=== PATIENT | female | born 1950 | race Caucasian/White ===

== ENCOUNTER 2018-09-06 14:58 | Inpatient (IN) | payer MEDICARE, MEDICAID ==
[~2018-09-06] VITALS: Ht 165.1 cm; Wt 90.9 kg
[2018-09-06] MEDS ORDERED: HYDROcodone/acetaminophen 5mg/325mg tablet PO ONE (19:15)
[2018-09-06 19:24] LABS: BASOPHILS % (AUTO) 0.3 % (0-1); EOSINOPHILS % (AUTO) 0.3 % (0-6); HEMATOCRIT 34.7 % (35.0-45.0); HEMOGLOBIN 11.2 g/dl (12.0-16.0); LYMPHOCYTES # (AUTO) 0.7 X10'3 (1.1-4.8); LYMPHOCYTES % (AUTO) 5.6 % (21-51); MEAN CORPUSCULAR HEMOGLOBIN 28.7 PG (27.0-31.0); MEAN CORPUSCULAR HGB CONC 32.4 g/dL (33.0-36.5); MEAN CORPUSCULAR VOLUME 88.6 FL (78-98); MEAN PLATELET VOLUME 7.7 FL (7.4-10.4); MONOCYTES # (AUTO) 0.8 X10'3 (0-0.9); MONOCYTES % (AUTO) 6.5 % (2-12); NEUTROPHILS # (AUTO) 11.4 X10'3 (1.8-7.7); NEUTROPHILS % (AUTO) 87.3 % (42-75); PLATELET COUNT 578 X10'3 (140-440); RED BLOOD COUNT 3.92 X10'6 (4.20-5.60); RED CELL DISTRIBUTION WIDTH 14.8 % (11.5-14.5); WHITE BLOOD COUNT 13.1 X10'3 (4.5-11.0)
[2018-09-06 19:44] LABS: ALBUMIN 2.7 G/DL (3.4-5.0); ANION GAP 11 (8-16); BLOOD UREA NITROGEN 21 MG/DL (7-18); BUN/CREATININE RATIO 21.2 (6.6-38.0); CALCIUM 9.4 MG/DL (8.5-10.1); CHLORIDE 94 MMOL/L (99-107); CREATININE 0.99 MG/DL (0.40-0.90); GLUCOSE 86 MG/DL (70-104); POTASSIUM 4.2 MMOL/L (3.5-5.1); SODIUM 129 MMOL/L (135-145); TOTAL CARBON DIOXIDE 24.2 MMOL/L (24-32); eGFR 56 ML/MIN
[2018-09-06] MEDS ORDERED: vancomycin/NS 1 GM ADD-VANTAGE 250 ML IV ONE (22:00)
[2018-09-06] MEDS ORDERED: CefTRIAXone 2gm/D5W 50ml 50 ML IV ONE (22:00)
[2018-09-06] MEDS ORDERED: magnesium Cl slow-release 64mg tablet PO PRN (22:15)
[2018-09-06] MEDS ORDERED: magnesium 4gm in 100ml NS 100 ML IV PRN (22:15)
[2018-09-06] MEDS ORDERED: magnesium hydroxide 30ml (MOM) UD suspension PO PRN (22:15)
[2018-09-06] MEDS ORDERED: potassium Cl 40MEQ/NS 500ml 500 ML IV PRN ×2 (22:15)
[2018-09-06] MEDS ORDERED: magnesium 2GM in 50ml NS 50 ML IV PRN (22:15)
[2018-09-06] MEDS ORDERED: acetaminophen 325mg tablet PO PRN (22:15)
[2018-09-06] MEDS ORDERED: normal saline 1000ml 1,000 ML IV ONE (22:15)
[2018-09-06] MEDS ORDERED: potassium Cl 20 mEq SR tablet PO PRN ×2 (22:15)
[2018-09-06] MEDS ORDERED: HYDROcodone/acetaminophen 5mg/325mg tablet PO PRN (22:15)
[2018-09-06] MEDS ORDERED: mag hydrox/Alum hydrox/simeth 30ml oral suspension PO PRN (22:15)
[2018-09-06] MEDS ORDERED: ondansetron/PF 4mg/2ml inj IV PRN (22:15)
[2018-09-06] MEDS ORDERED: HYDROmorphone 1 mg/ml syringe IV ONE (23:35)
--- NOTE | 2018-09-07 00:10 | NUR ---
PT SLEEPING, WILL NOT WAKE PT TO ADMIN DILAUDID.
--- NOTE | 2018-09-07 00:37 | NUR ---
pt placed on hospital bed for comfort
[2018-09-07] MEDS: K and/or MAG REPLACEMENT MC SCH (08:00)
[2018-09-07] MEDS: lactobacillus rhamnosus 10,000 MMU CELLS/CAPSULE PO SCH ×2 (08:39→20:00)
[2018-09-07] MEDS: enoxaparin 40mg/0.4ml syringe SQ SCH (08:40)
[2018-09-07] MEDS: morphine 4 MG/ML inj SYRINge IV PRN ×3 (08:41→20:14)
[2018-09-07 08:44] LABS: BASOPHILS % (AUTO) 0.3 % (0-1); EOSINOPHILS % (AUTO) 0.2 % (0-6); HEMATOCRIT 36.7 % (35.0-45.0); HEMOGLOBIN 11.7 g/dl (12.0-16.0); LYMPHOCYTES # (AUTO) 0.9 X10'3 (1.1-4.8); LYMPHOCYTES % (AUTO) 7.4 % (21-51); MEAN CORPUSCULAR HEMOGLOBIN 28.8 PG (27.0-31.0); MEAN CORPUSCULAR HGB CONC 31.8 g/dL (33.0-36.5); MEAN CORPUSCULAR VOLUME 90.3 FL (78-98); MEAN PLATELET VOLUME 7.5 FL (7.4-10.4); MONOCYTES # (AUTO) 0.9 X10'3 (0-0.9); MONOCYTES % (AUTO) 6.9 % (2-12); NEUTROPHILS # (AUTO) 10.6 X10'3 (1.8-7.7); NEUTROPHILS % (AUTO) 85.2 % (42-75); PLATELET COUNT 491 X10'3 (140-440); RED BLOOD COUNT 4.06 X10'6 (4.20-5.60); RED CELL DISTRIBUTION WIDTH 14.8 % (11.5-14.5); WHITE BLOOD COUNT 12.4 X10'3 (4.5-11.0)
[2018-09-07 09:31] LABS: ALBUMIN 2.6 G/DL (3.4-5.0); ANION GAP 16 (8-16); BLOOD UREA NITROGEN 19 MG/DL (7-18); BUN/CREATININE RATIO 21.6 (6.6-38.0); CALCIUM 9.5 MG/DL (8.5-10.1); CHLORIDE 96 MMOL/L (99-107); CREATININE 0.88 MG/DL (0.40-0.90); GLUCOSE 78 MG/DL (70-104); MAGNESIUM 2.3 MG/DL (1.5-2.4); POTASSIUM 4.5 MMOL/L (3.5-5.1); SODIUM 131 MMOL/L (135-145); TOTAL CARBON DIOXIDE 19.3 MMOL/L (24-32); eGFR 64 ML/MIN
[2018-09-07] MEDS: vancomycin inj 1,250 MG in normal saline 250ml IV soln 250 ML IV SCH (11:00)
[2018-09-07] MEDS ORDERED: vancomycin/NS 1 GM ADD-VANTAGE 250 ML IV SCH (11:00)
--- NOTE | 2018-09-07 11:40 | NUR ---
paged vascular if they will attempt another ultz to ble.awaiting call.
--- NOTE | 2018-09-07 12:20 | NUR ---
per heavy truck technician,they will not do a repeat ultz to MD donna aware.non admin dilaudid since order is to be given prior vascular study.
[2018-09-07] MEDS ORDERED: VALE500C PO (12:40)
[2018-09-07] MEDS ORDERED: ACET-2119 PO (12:40)
--- NOTE | 2018-09-07 13:37 | NUR ---
WOUND CULTURE DONE.
--- NOTE | 2018-09-07 14:02 | NUR ---
PICTURE TAKEN TO RIGHT LEG.
--- NOTE | 2018-09-07 16:34 | NUR ---
relieving RN for break, pt is sleeping quietly on bed, resp even and unlabored,
--- NOTE | 2018-09-07 17:19 | NUR ---
patient reports she has $450 almaguer,but patient refused for RN to see it-also refused to keep it to safe.Patient reports her son will take it home when he comes to see her.
--- NOTE | 2018-09-07 19:48 | NUR ---
PT REQUESTING PAIN MEDICATION, APPEARS IN NO ACUTE DISTRESS, GIVEN MEAL TRAY.
[2018-09-07] MEDS: CefTRIAXone 2gm/D5W 50ml 50 ML IV SCH (21:15)
--- NOTE | 2018-09-07 22:32 | NUR ---
PT APPEARS TO BE SLEEPING, RESP EVEN,UNLABORED.
[2018-09-08] MEDS: vancomycin inj 1,250 MG in normal saline 250ml IV soln 250 ML IV SCH ×3 (00:05→23:25)
[2018-09-08] MEDS: morphine 4 MG/ML inj SYRINge IV PRN ×4 (00:20→17:26)
--- NOTE | 2018-09-08 01:24 | NUR ---
PT SITTING ON EDGE OF BED, APPEARS IN NO ACUTE DISTRESS.
--- NOTE | 2018-09-08 01:45 | NUR ---
REPORT CALLED TO RIGOBERTO, PATIENT CONDITION REVIEWED, QUESTIONS ANSWERED.
--- NOTE | 2018-09-08 02:15 | NUR ---
Received report from Miguel BARROSO pt arrived via hospital bed, alert and oriented, on RA, belongings in the bed with the pt, will assess pt and orient her to room.
[2018-09-08 02:30] VITALS: BP 99/57
--- NOTE | 2018-09-08 03:15 | NUR ---
Assessed pts, pt has open wound to R. calf, told pt we could put xeroform on the wound and wrap it with kerlex to protect wound from sticking to the sheets and protect it in general, pt refused to let me wrap leg stating " I cant stand those dressings because then they get wet and I just have to change them, I have dressings at home."
--- NOTE | 2018-09-08 06:15 | NUR ---
Patient in room [facility]. I have received report from Rosalia BARROSO and had the opportunity to ask questions and assume patient care.
--- NOTE | 2018-09-08 06:32 | NUR ---
Gave report to Silke BARROSO pt is awake and alert sitting on the edge of the bed in no apparent distress, call light and items of freq use within reach.
[2018-09-08] MEDS: lactobacillus rhamnosus 10,000 MMU CELLS/CAPSULE PO SCH ×2 (07:30→20:27)
[2018-09-08] MEDS: enoxaparin 40mg/0.4ml syringe SQ SCH (07:31)
[2018-09-08] MEDS: K and/or MAG REPLACEMENT MC SCH (07:36)
[2018-09-08 07:45] VITALS: BP 115/81
--- NOTE | 2018-09-08 09:00 | NUR ---
Patient refusing to have right leg wounds to be covered with any bandages and also refusing to elevate feet in bed, informed . aware.
[2018-09-08] MEDS: HYDROcodone/acetaminophen 10/325mg tab PO PRN ×3 (09:30→21:16)
[2018-09-08 09:40] LABS: BASOPHILS # (AUTO) 0.1 X10'3 (0-0.2); BASOPHILS % (AUTO) 0.8 % (0-1); EOSINOPHILS # (AUTO) 0.1 X10'3 (0-0.9); EOSINOPHILS % (AUTO) 0.6 % (0-6); HEMATOCRIT 31.8 % (35.0-45.0); HEMOGLOBIN 10.4 g/dl (12.0-16.0); LYMPHOCYTES # (AUTO) 0.9 X10'3 (1.1-4.8); LYMPHOCYTES % (AUTO) 8.1 % (21-51); MEAN CORPUSCULAR HGB CONC 32.7 g/dL (33.0-36.5); MEAN CORPUSCULAR VOLUME 88.7 FL (78-98); MEAN PLATELET VOLUME 7.8 FL (7.4-10.4); MONOCYTES # (AUTO) 0.9 X10'3 (0-0.9); MONOCYTES % (AUTO) 8.7 % (2-12); NEUTROPHILS # (AUTO) 8.8 X10'3 (1.8-7.7); NEUTROPHILS % (AUTO) 81.8 % (42-75); PLATELET COUNT 497 X10'3 (140-440); RED BLOOD COUNT 3.58 X10'6 (4.20-5.60); RED CELL DISTRIBUTION WIDTH 15.1 % (11.5-14.5); WHITE BLOOD COUNT 10.8 X10'3 (4.5-11.0)
[2018-09-08 09:44] LABS: ALBUMIN 2.4 G/DL (3.4-5.0); ANION GAP 10 (8-16); BLOOD UREA NITROGEN 17 MG/DL (7-18); BUN/CREATININE RATIO 20.5 (6.6-38.0); CHLORIDE 98 MMOL/L (99-107); CREATININE 0.83 MG/DL (0.40-0.90); GLUCOSE 110 MG/DL (70-104); POTASSIUM 4.2 MMOL/L (3.5-5.1); SODIUM 133 MMOL/L (135-145); eGFR 69 ML/MIN
[2018-09-08 11:53] VITALS: BP 107/74
--- NOTE | 2018-09-08 13:00 | NUR ---
paged regarding pt stating, "I want to kill myself if this doesnt get any better. I cant handle the pain and not being able to care for myself." Asked patient if she has a plan, pt responded with, "I dont have a plan, my plan is to get better. But if this doesnt get any better then I want to kill myself. I dont want to kill myself right now." paged regarding pt statements.
--- NOTE | 2018-09-08 13:47 | NUR ---
Patient sleeping, does not appear to be in any pain at this time. Will continue to monitor.
--- NOTE | 2018-09-08 18:20 | NUR ---
Patient in room [facility]. I have received report from Silke BARROSO and had the opportunity to ask questions and assume patient care. Patient sitting at side of bed with legs hanging down. Will continue to monitor.
--- NOTE | 2018-09-08 18:22 | NUR ---
Problems reprioritized. Patient report given, questions answered & plan of care reviewed with Mary BARROSO.
--- NOTE | 2018-09-08 18:28 | NUR ---
Student documentation: I have reviewed and agree with all interventions, assessments performed and documented by Ciera Student Nurse. Student Medication Administration: For this medication-pass time frame, all medication were reviewed, dispensed, administered and documented per hospital policy by Ciera Student Nurse.
[2018-09-08 19:00] VITALS: BP 110/70
--- NOTE | 2018-09-08 19:00 | NUR ---
Patient states, "I am unable to have my leg on the bed. I have done everything you all are recommending at [facility] and it makes it worse." Educated patient importance of elevating leg to decrease swelling. Patient stated, "You are not listening, I can not lift my leg on the bed." State understanding and educate her healing may take more time. Will continue to monitor.
[2018-09-08] MEDS: CefTRIAXone 2gm/D5W 50ml 50 ML IV SCH (20:27)
[2018-09-08] MEDS ORDERED: VANCOMYCIN LEVEL IV NR (22:30)
[2018-09-09] VITALS: BP 111/60
[2018-09-09] MEDS: vancomycin inj 1,250 MG in normal saline 250ml IV soln 250 ML IV SCH ×3 (00:18→22:06)
[2018-09-09] MEDS: HYDROcodone/acetaminophen 10/325mg tab PO PRN ×5 (04:33→23:46)
[2018-09-09 06:19] LABS: ALBUMIN 2.3 G/DL (3.4-5.0); ANION GAP 8 (8-16); BLOOD UREA NITROGEN 17 MG/DL (7-18); BUN/CREATININE RATIO 20.5 (6.6-38.0); CALCIUM 9.1 MG/DL (8.5-10.1); CHLORIDE 100 MMOL/L (99-107); CREATININE 0.83 MG/DL (0.40-0.90); GLUCOSE 108 MG/DL (70-104); SODIUM 132 MMOL/L (135-145); TOTAL CARBON DIOXIDE 23.8 MMOL/L (24-32); eGFR 69 ML/MIN
[2018-09-09 06:24] LABS: BASOPHILS % (AUTO) 0.5 % (0-1); EOSINOPHILS # (AUTO) 0.1 X10'3 (0-0.9); EOSINOPHILS % (AUTO) 0.8 % (0-6); HEMATOCRIT 34.4 % (35.0-45.0); HEMOGLOBIN 11.2 g/dl (12.0-16.0); LYMPHOCYTES # (AUTO) 0.5 X10'3 (1.1-4.8); LYMPHOCYTES % (AUTO) 6.6 % (21-51); MEAN CORPUSCULAR HGB CONC 32.7 g/dL (33.0-36.5); MEAN CORPUSCULAR VOLUME 88.7 FL (78-98); MEAN PLATELET VOLUME 7.9 FL (7.4-10.4); MONOCYTES # (AUTO) 0.8 X10'3 (0-0.9); MONOCYTES % (AUTO) 9.9 % (2-12); NEUTROPHILS # (AUTO) 6.6 X10'3 (1.8-7.7); NEUTROPHILS % (AUTO) 82.2 % (42-75); PLATELET COUNT 331 X10'3 (140-440); RED BLOOD COUNT 3.88 X10'6 (4.20-5.60); RED CELL DISTRIBUTION WIDTH 15.3 % (11.5-14.5)
[2018-09-09 06:26] LABS: POTASSIUM 4.4 MMOL/L (3.5-5.1)
--- NOTE | 2018-09-09 06:46 | NUR ---
Problems reprioritized. Patient report given, questions answered & plan of care reviewed with Kyleigh RN. Patient resting, sitter at bedside, eyes openned when entered room, appears in no distress, denies pain at this time.
--- NOTE | 2018-09-09 06:46 | NUR ---
Patient in room [facility]. I have received report from CHIO Hernandez and had the opportunity to ask questions and assume patient care.
[2018-09-09 07:00] VITALS: BP 96/60
[2018-09-09] MEDS: K and/or MAG REPLACEMENT MC SCH (08:00)
[2018-09-09] MEDS: enoxaparin 40mg/0.4ml syringe SQ SCH (08:30)
[2018-09-09] MEDS: lactobacillus rhamnosus 10,000 MMU CELLS/CAPSULE PO SCH ×2 (08:30→20:54)
[2018-09-09 11:00] VITALS: BP 106/76
--- NOTE | 2018-09-09 18:43 | NUR ---
Problems reprioritized. Patient report given, questions answered & plan of care reviewed with CHIO Hung.
--- NOTE | 2018-09-09 19:49 | NUR ---
Patient in room [facility] 350. I have received report from CHIO Arizmendi and had the opportunity to ask questions and assume patient care. Addendum: 09/09/18 at 1950 by Anabell De Leon RN Amended: Links added.
[2018-09-09 20:00] VITALS: BP 114/92
[2018-09-09] MEDS: CefTRIAXone 2gm/D5W 50ml 50 ML IV SCH (20:54)
[2018-09-09] MEDS: sodium chloride 1gm tablet PO SCH (20:54)
[2018-09-10] VITALS (23 sets, daily range): BP systolic 90–132; BP diastolic 40–69
[2018-09-10] MEDS: HYDROcodone/acetaminophen 10/325mg tab PO PRN ×2 (05:04→10:02)
[2018-09-10 05:29] LABS: BASOPHILS # (AUTO) 0.1 X10'3 (0-0.2); BASOPHILS % (AUTO) 0.5 % (0-1); EOSINOPHILS # (AUTO) 0.1 X10'3 (0-0.9); EOSINOPHILS % (AUTO) 0.8 % (0-6); HEMATOCRIT 32.6 % (35.0-45.0); HEMOGLOBIN 10.6 g/dl (12.0-16.0); LYMPHOCYTES # (AUTO) 0.8 X10'3 (1.1-4.8); LYMPHOCYTES % (AUTO) 6.8 % (21-51); MEAN CORPUSCULAR HGB CONC 32.6 g/dL (33.0-36.5); MEAN CORPUSCULAR VOLUME 89.1 FL (78-98); MEAN PLATELET VOLUME 7.5 FL (7.4-10.4); MONOCYTES % (AUTO) 8.5 % (2-12); NEUTROPHILS % (AUTO) 83.4 % (42-75); PLATELET COUNT 555 X10'3 (140-440); RED BLOOD COUNT 3.66 X10'6 (4.20-5.60)
[2018-09-10 05:47] LABS: ALBUMIN 2.6 G/DL (3.4-5.0); ANION GAP 9 (8-16); BLOOD UREA NITROGEN 18 MG/DL (7-18); BUN/CREATININE RATIO 17.5 (6.6-38.0); CALCIUM 9.5 MG/DL (8.5-10.1); CHLORIDE 98 MMOL/L (99-107); CREATININE 1.03 MG/DL (0.40-0.90); GLUCOSE 107 MG/DL (70-104); MAGNESIUM 1.9 MG/DL (1.5-2.4); POTASSIUM 4.4 MMOL/L (3.5-5.1); SODIUM 131 MMOL/L (135-145); TOTAL CARBON DIOXIDE 24.4 MMOL/L (24-32); eGFR 53 ML/MIN
--- NOTE | 2018-09-10 06:14 | NUR ---
Problems reprioritized. Patient report given, questions answered & plan of care reviewed with CHIO Edouard. Addendum: 09/10/18 at 0614 by Anabell De Leon RN Amended: Links added.
--- NOTE | 2018-09-10 06:30 | NUR ---
Patient in room [facility]. I have received report from Anabell BARROSO and had the opportunity to ask questions and assume patient care.
[2018-09-10] MEDS: lactobacillus rhamnosus 10,000 MMU CELLS/CAPSULE PO SCH ×2 (07:03→19:41)
[2018-09-10] MEDS: sodium chloride 1gm tablet PO SCH ×4 (07:03→19:41)
[2018-09-10] MEDS: K and/or MAG REPLACEMENT MC SCH (07:03)
[2018-09-10] MEDS: enoxaparin 40mg/0.4ml syringe SQ SCH (07:03)
--- NOTE | 2018-09-10 08:56 | NUR ---
Dr. Short paged regarding MDRO in right leg wound. Awaiting call back.
--- NOTE | 2018-09-10 09:36 | NUR ---
Dr. Short informed about MDRO in right leg wound. No new orders at this time. also ordered IV fluids since pt is NPO and chest xray for preop.
--- NOTE | 2018-09-10 10:01 | NUR ---
Dr. Quezada informed of MDRO in right leg wound and abnormal EKG. aware, no new orders at this time.
[2018-09-10] MEDS: dextrose 5%-normal saline 1,000 ML IV SCH ×2 (10:05→22:55)
[2018-09-10] MEDS: levoFLOXACIN 750MG TABLET PO SCH ×2 (10:13→11:00)
[2018-09-10] MEDS: vancomycin inj 1,250 MG in normal saline 250ml IV soln 250 ML IV SCH ×2 (10:14→22:23)
[2018-09-10] MEDS ORDERED: ringers solution, lacted 1,000 ML IV SCH ×2 (12:56→15:40)
[2018-09-10] MEDS ORDERED: morphine 4 MG/ML inj SYRINge IV PRN ×4 (13:00→15:40)
[2018-09-10] MEDS ORDERED: ondansetron/PF 4mg/2ml inj IV PRN ×2 (13:00→15:40)
[2018-09-10] MEDS ORDERED: meperidine/PF 25mg/ml syringe IV PRN ×6 (13:00→15:40)
[2018-09-10] MEDS ORDERED: proCHLORperazine 10 MG/2 ml inj IV PRN ×2 (13:00→15:40)
--- NOTE | 2018-09-10 14:42 | NUR ---
Extended PIV inserted to the left upper arm basilic vein x 1 attempt using ultrasound. Johny well Addendum: 09/10/18 at 1442 by Annmarie Allred RN Amended: Links added.
--- NOTE | 2018-09-10 15:14 | NUR ---
Patient taken down to OR with son at bedside.
--- NOTE | 2018-09-10 15:16 | NUR ---
Patient report given to recovery room nurse Vishal BARROSO.
[2018-09-10] MEDS ORDERED: sevoflurane 250ml liquid IH ONE (15:53)
[2018-09-10] MEDS ORDERED: fentaNYL /PF 50mcg/ml 5ml ampule ONE (15:58)
[2018-09-10] MEDS ORDERED: midazolam 2 mg/2 ml injection ONE (15:58)
[2018-09-10] MEDS: silver sulfadiazine cream 50gm TP ONE ×2 (16:40→17:00)
[2018-09-10] MEDS ORDERED: propofol inj 20 ML IV ONE (16:55)
--- NOTE | 2018-09-10 17:00 | NUR ---
Received from OR via , accompanied by Anesthesiologist and report given by Anesthesiolgist. PATIENT ARRIVED VIA HOSPITAL BED, LMA IN PLACE, 10L MASK IN PLACE 02 SAT 99%, VSS CHARTED, PATI DRESSING TO RIGHT LOWER EXTRMITY AND THIGH CDI. WILL CONTINUE TO MONITOR.
--- NOTE | 2018-09-10 17:05 | NUR ---
LMA REMOVED, COUGHING, SUCTIONED NEEDED. PATIENT A&OX4, WILL CONTINUE TO MONITOR.
[2018-09-10] MEDS ORDERED: HYDROcodone/acetaminophen 10/325mg tab PO ONE (17:20)
--- NOTE | 2018-09-10 17:23 | NUR ---
Received report from recovery nurse Carolynn BARROSO. Awaiting arrival back to room 350A.
--- NOTE | 2018-09-10 17:30 | NUR ---
Received from OR via bed, accompanied by Anesthesiologist. Report received. Initial physical assessment done and recorded.
--- NOTE | 2018-09-10 17:40 | NUR ---
PATIENT TRANSFER CRITERIA MET, REPORT CALLED TO EMMY BARROSO ON SURG ALL QUESTIONS AND CONCERNS ADDRESSED. TRANSFERRED VIA HOSPITAL BED. DRESSING TO RIGHT LOWER EXTREMITY AND RIGHT UPPER THIGH CDI.
--- NOTE | 2018-09-10 17:45 | NUR ---
Patient arrived back to room 350A. VSS. Right leg dressing CDI. Pt refusing to have 2 RN skin check done at this time.
--- NOTE | 2018-09-10 18:15 | NUR ---
Problems reprioritized. Patient report given, questions answered & plan of care reviewed with Anabell BARROSO.
[2018-09-10] MEDS: morphine 4 MG/ML inj SYRINge IV PRN ×2 (18:31→22:23)
--- NOTE | 2018-09-10 21:48 | NUR ---
Patient in room [facility]. I have received report from CHIO Edouard and had the opportunity to ask questions and assume patient care. Addendum: 09/10/18 at 2148 by Anabell De Leon RN Amended: Links added.
[2018-09-11] MEDS: morphine 4 MG/ML inj SYRINge IV PRN ×4 (04:16→21:45)
[2018-09-11 04:26] VITALS: BP 125/74
[2018-09-11 05:04] LABS: BASOPHILS % (AUTO) 0.4 % (0-1); EOSINOPHILS % (AUTO) 0.2 % (0-6); HEMATOCRIT 29.3 % (35.0-45.0); HEMOGLOBIN 9.5 g/dl (12.0-16.0); LYMPHOCYTES # (AUTO) 0.6 X10'3 (1.1-4.8); LYMPHOCYTES % (AUTO) 5.6 % (21-51); MEAN CORPUSCULAR HGB CONC 32.5 g/dL (33.0-36.5); MEAN CORPUSCULAR VOLUME 89.2 FL (78-98); MEAN PLATELET VOLUME 7.5 FL (7.4-10.4); MONOCYTES # (AUTO) 0.9 X10'3 (0-0.9); MONOCYTES % (AUTO) 8.4 % (2-12); NEUTROPHILS # (AUTO) 9.6 X10'3 (1.8-7.7); NEUTROPHILS % (AUTO) 85.4 % (42-75); PLATELET COUNT 413 X10'3 (140-440); RED BLOOD COUNT 3.29 X10'6 (4.20-5.60); RED CELL DISTRIBUTION WIDTH 14.9 % (11.5-14.5); WHITE BLOOD COUNT 11.2 X10'3 (4.5-11.0)
[2018-09-11 05:20] LABS: ANION GAP 7 (8-16); BLOOD UREA NITROGEN 13 MG/DL (7-18); BUN/CREATININE RATIO 15.1 (6.6-38.0); CALCIUM 8.9 MG/DL (8.5-10.1); CHLORIDE 101 MMOL/L (99-107); CREATININE 0.86 MG/DL (0.40-0.90); GLUCOSE 117 MG/DL (70-104); MAGNESIUM 1.8 MG/DL (1.5-2.4); POTASSIUM 4.2 MMOL/L (3.5-5.1); SODIUM 133 MMOL/L (135-145); TOTAL CARBON DIOXIDE 24.7 MMOL/L (24-32); eGFR 66 ML/MIN
--- NOTE | 2018-09-11 06:15 | NUR ---
Problems reprioritized. Patient report given, questions answered & plan of care reviewed with CHIO Edouard. Addendum: 09/11/18 at 0615 by Anabell De Leon RN Amended: Links added.
--- NOTE | 2018-09-11 06:35 | NUR ---
Patient in room [facility]. I have received report from Anabell BARROSO and had the opportunity to ask questions and assume patient care.
[2018-09-11] MEDS: K and/or MAG REPLACEMENT MC SCH (07:49)
[2018-09-11] MEDS: sodium chloride 1gm tablet PO SCH ×4 (08:08→21:42)
[2018-09-11] MEDS: HYDROcodone/acetaminophen 10/325mg tab PO PRN ×4 (08:08→23:22)
[2018-09-11] MEDS: lactobacillus rhamnosus 10,000 MMU CELLS/CAPSULE PO SCH ×2 (08:08→19:09)
[2018-09-11] MEDS: enoxaparin 40mg/0.4ml syringe SQ SCH (08:09)
[2018-09-11 08:18] VITALS: BP 108/72
--- NOTE | 2018-09-11 08:35 | NUR ---
Patient refusing to be changed after voiding, refusing to have nurse touch right leg at all, refusing to be moved and repositioned. Dressing to right leg is soiled, pt refusing to have dressing changed until Dr. Quezada comes in.
[2018-09-11] MEDS: vancomycin inj 1,250 MG in normal saline 250ml IV soln 250 ML IV SCH ×2 (11:05→23:22)
[2018-09-11] MEDS: levoFLOXACIN 750MG TABLET PO SCH (11:05)
[2018-09-11 11:23] VITALS: BP 105/56
[2018-09-11] MEDS: dextrose 5%-normal saline 1,000 ML IV SCH ×2 (13:15→23:23)
--- NOTE | 2018-09-11 14:49 | NUR ---
Pt refusing to put legs back in bed to elevate feet at this time. Explained to pt that her legs are swelling and it is making her right leg more painful. Pt stated she wants to wait 20min more before putting her legs back in bed. Will reattempt to elevate pts legs.
--- NOTE | 2018-09-11 18:21 | NUR ---
Problems reprioritized. Patient report given, questions answered & plan of care reviewed with Lulu BARROSO.
[2018-09-11 19:00] VITALS: BP 91/40
[2018-09-12 00:13] VITALS: BP_SYST 87; BP_SYST 96; BP_DIAS 50; BP_DIAS 62
[2018-09-12] MEDS: HYDROcodone/acetaminophen 10/325mg tab PO PRN ×5 (03:27→21:03)
[2018-09-12] MEDS: morphine 4 MG/ML inj SYRINge IV PRN (04:27)
--- NOTE | 2018-09-12 06:26 | NUR ---
Problems reprioritized. Patient report given, questions answered & plan of care reviewed with CHIO Putnam. Addendum: 09/12/18 at 0626 by David Conti RN Amended: Links added.
--- NOTE | 2018-09-12 06:50 | NUR ---
Patient in room [facility]. I have received report from Lulu BARROSO and had the opportunity to ask questions and assume patient care.
[2018-09-12 07:14] VITALS: BP 95/54
[2018-09-12] MEDS: K and/or MAG REPLACEMENT MC SCH (08:00)
--- NOTE | 2018-09-12 08:00 | NUR ---
Patient has a WICK for voiding Addendum: 09/12/18 at 1700 by Indy Verdin RN Amended: Links added.
[2018-09-12] MEDS: lactobacillus rhamnosus 10,000 MMU CELLS/CAPSULE PO SCH ×2 (08:45→19:19)
[2018-09-12] MEDS: sodium chloride 1gm tablet PO SCH (08:45)
[2018-09-12] MEDS: enoxaparin 40mg/0.4ml syringe SQ SCH (08:46)
[2018-09-12] MEDS: vancomycin inj 1,250 MG in normal saline 250ml IV soln 250 ML IV SCH ×2 (11:35→22:41)
[2018-09-12] MEDS: levoFLOXACIN 750MG TABLET PO SCH (11:35)
--- NOTE | 2018-09-12 11:37 | NUR ---
Initial: Pt admit with cellulitis to right leg s/p debridement 09/10/18 per MD notes. Pt currently on a CHO controlled diet with no documented hx of DM, per bedside RN pt requested CHO controlled diet. Documented PO intake 75-100% likely meeting nutrient needs with adequate protein to promote skin integrity. LB 09/11. Will continue to follow. Recommendations: 1) Continue with CHO controlled diet per pt request 2) Monitor need for ONS/additional protein 3) Wt per rx Addendum: 09/12/18 at [address] Amended: Links added.
[2018-09-12 11:52] VITALS: BP 97/63
[2018-09-12 12:13] VITALS: BP 97/63
--- NOTE | 2018-09-12 12:17 | NUR ---
No labs drawn today MD barron
[2018-09-12] MEDS ORDERED: morphine 4 MG/ML inj SYRINge IV ONE (12:20)
[2018-09-12] MEDS: morphine 2 MG/ML inj. syringe IV PRN (13:33)
[2018-09-12] MEDS: silver sulfadiazine cream 400gm jar TP SCH (14:08)
[2018-09-12 18:00] VITALS: BP 98/60
--- NOTE | 2018-09-12 18:02 | NUR ---
Patient in room [facility]. I have received report from Indy BARROSO and had the opportunity to ask questions and assume patient care.
--- NOTE | 2018-09-12 18:36 | NUR ---
Problems reprioritized. Patient report given, questions answered & plan of care reviewed with Liliam BARROSO.
[2018-09-12] MEDS: nystatin 15 GM powder TP SCH ×2 (19:19→21:00)
[2018-09-13] VITALS: BP 87/42
[2018-09-13] MEDS: HYDROcodone/acetaminophen 10/325mg tab PO PRN ×5 (00:38→22:35)
--- NOTE | 2018-09-13 06:35 | NUR ---
Problems reprioritized. Patient report given, questions answered & plan of care reviewed with Renae BARROSO.
[2018-09-13 07:00] VITALS: BP 96/54
[2018-09-13] MEDS: silver sulfadiazine cream 400gm jar TP SCH ×2 (08:00→08:43)
[2018-09-13] MEDS: K and/or MAG REPLACEMENT MC SCH (08:00)
[2018-09-13] MEDS: enoxaparin 40mg/0.4ml syringe SQ SCH (08:43)
[2018-09-13] MEDS: lactobacillus rhamnosus 10,000 MMU CELLS/CAPSULE PO SCH ×2 (08:43→20:00)
[2018-09-13] MEDS: nystatin 15 GM powder TP SCH ×3 (08:43→20:00)
[2018-09-13 11:24] VITALS: BP 92/69
[2018-09-13] MEDS: vancomycin inj 1,250 MG in normal saline 250ml IV soln 250 ML IV SCH ×2 (11:30→22:35)
[2018-09-13] MEDS: levoFLOXACIN 750MG TABLET PO SCH (11:30)
--- NOTE | 2018-09-13 15:12 | NUR ---
NOTIFIED DR YOUNG OF PT REFUSING: PT, WOUND CARE, BATHING, USE OF COMMODE.
--- NOTE | 2018-09-13 18:00 | NUR ---
Patient in room [facility]. I have received report from Renae BARROSO and had the opportunity to ask questions and assume patient care.
--- NOTE | 2018-09-13 18:23 | NUR ---
Problems reprioritized. Patient report given, questions answered & plan of care reviewed with derek arnold.
[2018-09-13] MEDS: lactose-reduced food (Ensure High Protein) 237ml bottle PO SCH (18:30)
[2018-09-13 20:00] VITALS: BP 81/51
--- NOTE | 2018-09-13 21:06 | NUR ---
pt refused to have her dressing changed. stated the doctor said "it looks good and doesn't need to be done today." informed her about the orders but she refused anyways. pt refused to use the BSC. pt used bedpan instead and the PCT were able to change her linens in the process. will continue to monitor pt
[2018-09-14 00:15] VITALS: BP 87/66
[2018-09-14] MEDS: HYDROcodone/acetaminophen 10/325mg tab PO PRN ×4 (05:18→23:18)
--- NOTE | 2018-09-14 06:06 | NUR ---
Problems reprioritized. Patient report given, questions answered & plan of care reviewed with Renae BARROSO.
--- NOTE | 2018-09-14 06:17 | NUR ---
Patient in room [facility]. I have received report from FARRUKH BARROSO and had the opportunity to ask questions and assume patient care.
[2018-09-14 07:00] VITALS: BP 93/59
[2018-09-14] MEDS: K and/or MAG REPLACEMENT MC SCH (08:00)
[2018-09-14] MEDS: nystatin 15 GM powder TP SCH ×3 (08:25→20:13)
[2018-09-14] MEDS: lactobacillus rhamnosus 10,000 MMU CELLS/CAPSULE PO SCH ×2 (08:25→20:13)
[2018-09-14] MEDS: enoxaparin 40mg/0.4ml syringe SQ SCH (08:25)
[2018-09-14] MEDS: silver sulfadiazine cream 400gm jar TP SCH (08:26)
[2018-09-14] MEDS ORDERED: VANCOMYCIN LEVEL IV ONE ×2 (10:30→22:30)
--- NOTE | 2018-09-14 11:06 | NUR ---
PT REFUSING PT. PT STATES THAT SHE IS BEING "BULLIED" INTO MOVING WHEN SHE DOESNT WANT TO. EDUCATED PTTHAT ALOT OF HER "PAIN" IS CAUSED BY NOT MOVING IN BED, SHE STATES THAT THAT IS NOT THE CASE. PT CONTINUES TO BE NON-COMPLIANT AND RESISTIVE TO CARE. WILL NOTIFY
[2018-09-14] MEDS: vancomycin inj 1,250 MG in normal saline 250ml IV soln 250 ML IV SCH ×2 (11:28→23:18)
[2018-09-14] MEDS: levoFLOXACIN 750MG TABLET PO SCH (11:33)
[2018-09-14] MEDS: lactose-reduced food (Ensure High Protein) 237ml bottle PO SCH ×2 (13:00→18:00)
[2018-09-14 13:19] LABS: BASOPHILS % (AUTO) 0.5 % (0-1); EOSINOPHILS # (AUTO) 0.1 X10'3 (0-0.9); EOSINOPHILS % (AUTO) 0.9 % (0-6); HEMATOCRIT 27.7 % (35.0-45.0); HEMOGLOBIN 9.3 g/dl (12.0-16.0); LYMPHOCYTES # (AUTO) 0.6 X10'3 (1.1-4.8); LYMPHOCYTES % (AUTO) 6.1 % (21-51); MEAN CORPUSCULAR HEMOGLOBIN 29.4 PG (27.0-31.0); MEAN CORPUSCULAR HGB CONC 33.5 g/dL (33.0-36.5); MEAN CORPUSCULAR VOLUME 87.6 FL (78-98); MEAN PLATELET VOLUME 7.2 FL (7.4-10.4); MONOCYTES # (AUTO) 0.8 X10'3 (0-0.9); MONOCYTES % (AUTO) 8.8 % (2-12); NEUTROPHILS # (AUTO) 8.1 X10'3 (1.8-7.7); NEUTROPHILS % (AUTO) 83.7 % (42-75); PLATELET COUNT 356 X10'3 (140-440); RED BLOOD COUNT 3.16 X10'6 (4.20-5.60); RED CELL DISTRIBUTION WIDTH 14.6 % (11.5-14.5); WHITE BLOOD COUNT 9.7 X10'3 (4.5-11.0)
[2018-09-14 13:45] LABS: ALANINE AMINOTRANSFERASE 13 U/L (12-78); ALBUMIN 1.6 G/DL (3.4-5.0); ALBUMIN/GLOBULIN RATIO 0.4 (1.1-1.5); ALKALINE PHOSPHATASE 71 IU/L (46-116); ANION GAP 8 (8-16); ASPARTATE AMINO TRANSFERASE 13 U/L (10-37); BILIRUBIN,TOTAL 0.3 MG/DL (0.1-1.0); BLOOD UREA NITROGEN 13 MG/DL (7-18); BUN/CREATININE RATIO 14.4 (6.6-38.0); CALCIUM 8.5 MG/DL (8.5-10.1); CHLORIDE 100 MMOL/L (99-107); GLUCOSE 120 MG/DL (70-104); MAGNESIUM 1.7 MG/DL (1.5-2.4); PHOSPHORUS 3.5 MG/DL (2.3-4.5); POTASSIUM 4.1 MMOL/L (3.5-5.1); SODIUM 133 MMOL/L (135-145); TOTAL CARBON DIOXIDE 25.5 MMOL/L (24-32); TOTAL PROTEIN 5.6 G/DL (6.4-8.2); eGFR 62 ML/MIN
[2018-09-14] MEDS: morphine 2 MG/ML inj. syringe IV PRN (15:07)
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
[2018-09-14 18:00] VITALS: BP 101/55
--- NOTE | 2018-09-14 18:00 | NUR ---
Patient in room [facility]. I have received report from Renae BARROSO and had the opportunity to ask questions and assume patient care.
--- NOTE | 2018-09-14 18:17 | NUR ---
Problems reprioritized. Patient report given, questions answered & plan of care reviewed with FARRUKH BARROSO.
[2018-09-15] VITALS: BP 94/57
[2018-09-15] MEDS: HYDROcodone/acetaminophen 10/325mg tab PO PRN ×4 (03:21→22:41)
--- NOTE | 2018-09-15 06:10 | NUR ---
Problems reprioritized. Patient report given, questions answered & plan of care reviewed with Lucero BARROSO.
[2018-09-15 06:14] LABS: BASOPHILS % (AUTO) 0.4 % (0-1); EOSINOPHILS # (AUTO) 0.1 X10'3 (0-0.9); EOSINOPHILS % (AUTO) 1.5 % (0-6); HEMATOCRIT 25.5 % (35.0-45.0); HEMOGLOBIN 8.5 g/dl (12.0-16.0); LYMPHOCYTES # (AUTO) 0.7 X10'3 (1.1-4.8); LYMPHOCYTES % (AUTO) 7.9 % (21-51); MEAN CORPUSCULAR HEMOGLOBIN 29.3 PG (27.0-31.0); MEAN CORPUSCULAR HGB CONC 33.2 g/dL (33.0-36.5); MEAN CORPUSCULAR VOLUME 88.3 FL (78-98); MEAN PLATELET VOLUME 7.6 FL (7.4-10.4); MONOCYTES # (AUTO) 0.9 X10'3 (0-0.9); MONOCYTES % (AUTO) 10.8 % (2-12); NEUTROPHILS # (AUTO) 6.7 X10'3 (1.8-7.7); NEUTROPHILS % (AUTO) 79.4 % (42-75); PLATELET COUNT 331 X10'3 (140-440); RED BLOOD COUNT 2.88 X10'6 (4.20-5.60); RED CELL DISTRIBUTION WIDTH 14.6 % (11.5-14.5); WHITE BLOOD COUNT 8.4 X10'3 (4.5-11.0)
[2018-09-15 06:36] LABS: ALANINE AMINOTRANSFERASE 10 U/L (12-78); ALBUMIN 1.5 G/DL (3.4-5.0); ALBUMIN/GLOBULIN RATIO 0.4 (1.1-1.5); ALKALINE PHOSPHATASE 63 IU/L (46-116); ANION GAP 8 (8-16); ASPARTATE AMINO TRANSFERASE 13 U/L (10-37); BILIRUBIN,TOTAL 0.2 MG/DL (0.1-1.0); BLOOD UREA NITROGEN 12 MG/DL (7-18); BUN/CREATININE RATIO 14.6 (6.6-38.0); CALCIUM 8.4 MG/DL (8.5-10.1); CHLORIDE 100 MMOL/L (99-107); CREATININE 0.82 MG/DL (0.40-0.90); GLUCOSE 117 MG/DL (70-104); MAGNESIUM 1.7 MG/DL (1.5-2.4); POTASSIUM 4.1 MMOL/L (3.5-5.1); SODIUM 132 MMOL/L (135-145); TOTAL CARBON DIOXIDE 23.9 MMOL/L (24-32); TOTAL PROTEIN 5.4 G/DL (6.4-8.2); eGFR 70 ML/MIN
[2018-09-15 08:00] VITALS: BP 107/60
[2018-09-15] MEDS: lactose-reduced food (Ensure High Protein) 237ml bottle PO SCH ×3 (08:00→18:00)
[2018-09-15] MEDS: K and/or MAG REPLACEMENT MC SCH (08:00)
[2018-09-15] MEDS: silver sulfadiazine cream 400gm jar TP SCH ×2 (08:00→23:02)
[2018-09-15] MEDS: lactobacillus rhamnosus 10,000 MMU CELLS/CAPSULE PO SCH ×2 (08:53→22:37)
[2018-09-15] MEDS: enoxaparin 40mg/0.4ml syringe SQ SCH (08:53)
[2018-09-15] MEDS: nystatin 15 GM powder TP SCH ×3 (08:53→22:41)
[2018-09-15] MEDS ORDERED: VANCOMYCIN LEVEL IV ONE (10:30)
[2018-09-15 12:00] VITALS: BP 101/55
[2018-09-15] MEDS: morphine 2 MG/ML inj. syringe IV PRN (12:52)
--- NOTE | 2018-09-15 18:30 | NUR ---
Patient in room [facility]. I have received report from Lucero BARROSO and had the opportunity to ask questions and assume patient care. Patient resting in bed finishing dinner, requested next pain medication availability, 9 pm re-iterated, Will continue to monitor.
[2018-09-15 19:00] VITALS: BP 91/42
[2018-09-15] MEDS: acetaminophen 325mg tablet PO PRN (19:41)
[2018-09-15 20:00] VITALS: BP 100/50
[2018-09-15] MEDS: vancomycin/NS 1 GM ADD-VANTAGE 250 ML IV SCH (22:42)
[2018-09-16] VITALS: BP 90/54
[2018-09-16 05:33] LABS: BASOPHILS % (AUTO) 0.3 % (0-1); EOSINOPHILS # (AUTO) 0.2 X10'3 (0-0.9); EOSINOPHILS % (AUTO) 2.1 % (0-6); HEMATOCRIT 26.8 % (35.0-45.0); HEMOGLOBIN 8.8 g/dl (12.0-16.0); LYMPHOCYTES % (AUTO) 10.5 % (21-51); MEAN CORPUSCULAR HEMOGLOBIN 28.9 PG (27.0-31.0); MEAN CORPUSCULAR HGB CONC 32.6 g/dL (33.0-36.5); MEAN CORPUSCULAR VOLUME 88.4 FL (78-98); MEAN PLATELET VOLUME 7.6 FL (7.4-10.4); MONOCYTES # (AUTO) 1.1 X10'3 (0-0.9); MONOCYTES % (AUTO) 11.7 % (2-12); NEUTROPHILS % (AUTO) 75.4 % (42-75); PLATELET COUNT 380 X10'3 (140-440); RED BLOOD COUNT 3.04 X10'6 (4.20-5.60); RED CELL DISTRIBUTION WIDTH 14.7 % (11.5-14.5); WHITE BLOOD COUNT 9.2 X10'3 (4.5-11.0)
[2018-09-16] MEDS: HYDROcodone/acetaminophen 10/325mg tab PO PRN ×4 (05:50→19:15)
[2018-09-16 05:55] LABS: ALANINE AMINOTRANSFERASE 13 U/L (12-78); ALBUMIN 1.7 G/DL (3.4-5.0); ALBUMIN/GLOBULIN RATIO 0.4 (1.1-1.5); ALKALINE PHOSPHATASE 68 IU/L (46-116); ANION GAP 5 (8-16); ASPARTATE AMINO TRANSFERASE 16 U/L (10-37); BILIRUBIN,TOTAL 0.2 MG/DL (0.1-1.0); BLOOD UREA NITROGEN 15 MG/DL (7-18); BUN/CREATININE RATIO 18.8 (6.6-38.0); CALCIUM 8.7 MG/DL (8.5-10.1); CHLORIDE 99 MMOL/L (99-107); GLUCOSE 93 MG/DL (70-104); PHOSPHORUS 4.1 MG/DL (2.3-4.5); POTASSIUM 4.3 MMOL/L (3.5-5.1); SODIUM 132 MMOL/L (135-145); TOTAL CARBON DIOXIDE 28.3 MMOL/L (24-32); TOTAL PROTEIN 5.7 G/DL (6.4-8.2); eGFR 72 ML/MIN
[2018-09-16 05:56] VITALS: BP 110/68
--- NOTE | 2018-09-16 06:50 | NUR ---
Problems reprioritized. Patient report given, questions answered & plan of care reviewed with Miroslava RN. Patient resting, pain medication just administered prior to report.
[2018-09-16 07:00] VITALS: BP 95/52
--- NOTE | 2018-09-16 07:00 | NUR ---
Patient in room [facility]. I have received report from Mary and had the opportunity to ask questions and assume patient care.
[2018-09-16] MEDS: lactose-reduced food (Ensure High Protein) 237ml bottle PO SCH ×4 (08:00→18:00)
[2018-09-16] MEDS: K and/or MAG REPLACEMENT MC SCH (08:05)
[2018-09-16] MEDS: lactobacillus rhamnosus 10,000 MMU CELLS/CAPSULE PO SCH ×2 (08:17→19:16)
[2018-09-16] MEDS: enoxaparin 40mg/0.4ml syringe SQ SCH (08:18)
[2018-09-16] MEDS: nystatin 15 GM powder TP SCH ×3 (08:23→22:40)
[2018-09-16] MEDS: morphine 2 MG/ML inj. syringe IV PRN ×2 (09:07→22:39)
[2018-09-16] MEDS: levoFLOXACIN 500mg tablet PO SCH (11:39)
[2018-09-16] MEDS: vancomycin/NS 1 GM ADD-VANTAGE 250 ML IV SCH ×2 (11:39→22:38)
[2018-09-16 11:53] VITALS: BP 91/49
--- NOTE | 2018-09-16 15:46 | NUR ---
Wick removed to straight cath. Will not replace as patient is up ad law to BSC. Pt unhappy and states she refuses to get up again and demands wick to be replaced. Pt had large BM on BSC with SB assist. Encouraged pt to get OOB .
--- NOTE | 2018-09-16 18:14 | NUR ---
Problems reprioritized. Patient report given, questions answered & plan of care reviewed with Anabell. Addendum: 09/16/18 at 1815 by Miroslava Gregory RN Amended: Links added.
[2018-09-16] MEDS: acetaminophen 325mg tablet PO PRN (19:16)
[2018-09-16 20:00] VITALS: BP 110/52
[2018-09-16] MEDS: silver sulfadiazine cream 400gm jar TP SCH (22:41)
[2018-09-17] VITALS: BP 84/52
[2018-09-17] MEDS: HYDROcodone/acetaminophen 10/325mg tab PO PRN ×5 (00:22→23:27)
--- NOTE | 2018-09-17 01:13 | NUR ---
Patient in room [facility] 350. I have received report from CHIO [place] and had the opportunity to ask questions and assume patient care. Addendum: 09/17/18 at 0117 by Anabell De Leon RN Amended: Links added.
[2018-09-17 05:54] LABS: BASOPHILS % (AUTO) 0.4 % (0-1); EOSINOPHILS # (AUTO) 0.2 X10'3 (0-0.9); EOSINOPHILS % (AUTO) 1.8 % (0-6); HEMATOCRIT 26.4 % (35.0-45.0); LYMPHOCYTES # (AUTO) 0.7 X10'3 (1.1-4.8); LYMPHOCYTES % (AUTO) 7.9 % (21-51); MEAN CORPUSCULAR HEMOGLOBIN 29.8 PG (27.0-31.0); MEAN CORPUSCULAR HGB CONC 34.2 g/dL (33.0-36.5); MEAN CORPUSCULAR VOLUME 87.3 FL (78-98); MONOCYTES % (AUTO) 10.8 % (2-12); NEUTROPHILS # (AUTO) 7.2 X10'3 (1.8-7.7); NEUTROPHILS % (AUTO) 79.1 % (42-75); PLATELET COUNT 339 X10'3 (140-440); RED BLOOD COUNT 3.03 X10'6 (4.20-5.60); RED CELL DISTRIBUTION WIDTH 14.6 % (11.5-14.5)
[2018-09-17 06:04] LABS: ALANINE AMINOTRANSFERASE 12 U/L (12-78); ALBUMIN 1.6 G/DL (3.4-5.0); ALBUMIN/GLOBULIN RATIO 0.4 (1.1-1.5); ALKALINE PHOSPHATASE 73 IU/L (46-116); ANION GAP 6 (8-16); ASPARTATE AMINO TRANSFERASE 13 U/L (10-37); BILIRUBIN,TOTAL 0.3 MG/DL (0.1-1.0); BLOOD UREA NITROGEN 14 MG/DL (7-18); BUN/CREATININE RATIO 15.9 (6.6-38.0); CALCIUM 8.5 MG/DL (8.5-10.1); CHLORIDE 98 MMOL/L (99-107); CREATININE 0.88 MG/DL (0.40-0.90); GLUCOSE 84 MG/DL (70-104); MAGNESIUM 1.8 MG/DL (1.5-2.4); PHOSPHORUS 4.1 MG/DL (2.3-4.5); SODIUM 132 MMOL/L (135-145); TOTAL CARBON DIOXIDE 27.7 MMOL/L (24-32); TOTAL PROTEIN 5.7 G/DL (6.4-8.2); eGFR 64 ML/MIN
--- NOTE | 2018-09-17 06:23 | NUR ---
Problems reprioritized. Patient report given, questions answered & plan of care reviewed with CHIO Garcia. Addendum: 09/17/18 at 0623 by Anabell De Leon RN Amended: Links added.
[2018-09-17 07:15] VITALS: BP 84/49
[2018-09-17] MEDS: nystatin 15 GM powder TP SCH ×3 (08:00→19:23)
[2018-09-17] MEDS: K and/or MAG REPLACEMENT MC SCH (08:00)
[2018-09-17] MEDS: lactobacillus rhamnosus 10,000 MMU CELLS/CAPSULE PO SCH ×2 (08:05→19:22)
[2018-09-17] MEDS: enoxaparin 40mg/0.4ml syringe SQ SCH (08:06)
[2018-09-17] MEDS: lactose-reduced food (Ensure High Protein) 237ml bottle PO SCH ×3 (08:07→17:59)
[2018-09-17 10:07] VITALS: BP 97/52
[2018-09-17] MEDS: morphine 2 MG/ML inj. syringe IV PRN (10:18)
[2018-09-17] MEDS ORDERED: VANCOMYCIN LEVEL IV ONE (10:30)
--- NOTE | 2018-09-17 11:11 | NUR ---
Andrew with Pharmacy aware of Vanco trough of 21.3 give this dose they will change for patients next dose, Radha BARROSO aware.
[2018-09-17] MEDS: levoFLOXACIN 500mg tablet PO SCH (11:24)
[2018-09-17] MEDS: vancomycin/NS 1 GM ADD-VANTAGE 250 ML IV SCH (11:24)
--- NOTE | 2018-09-17 11:48 | NUR ---
visualized stool sample. orders to send for WBC.
[2018-09-17 11:57] VITALS: BP 95/70
--- NOTE | 2018-09-17 14:47 | NUR ---
reassessment: Pt PO decreased t0 50-75% meals w/ 25% ensure high protein down from 3 day prior PO of 75-100% meals. Pt remains noncompliant w/ PT and care per MD note. Will monitor for ONS changes if low PO persists to better meet protein/kcals needs. LBM 09/16. Will continue to monitor. Recommendations: 1) Continue regular diet 2) ensure high protein TIDWM per MD 3) monitor for ONS changes if PO remains lower 4) Wt per rx Addendum: 09/17/18 at [address] Amended: Links added.
[2018-09-17] MEDS: normal saline 1000ml 1,000 ML IV SCH (18:15)
--- NOTE | 2018-09-17 18:32 | NUR ---
Problems reprioritized. Patient report given, questions answered & plan of care reviewed with CHIO Pearson.
[2018-09-17 19:00] VITALS: BP 98/45
--- NOTE | 2018-09-17 19:44 | NUR ---
Patient in room [facility] 350. I have received report from CHIO Garcia and had the opportunity to ask questions and assume patient care. Addendum: 09/17/18 at 1945 by Anabell De Leon RN Amended: Links added.
[2018-09-17] MEDS: VANCOMYCIN 750MG IV in NS 250 ML IV SCH (23:17)
[2018-09-18] VITALS: BP 95/54
[2018-09-18] MEDS: HYDROcodone/acetaminophen 10/325mg tab PO PRN ×5 (04:58→23:27)
[2018-09-18 06:03] LABS: BASOPHILS % (AUTO) 0.4 % (0-1); EOSINOPHILS # (AUTO) 0.2 X10'3 (0-0.9); EOSINOPHILS % (AUTO) 1.6 % (0-6); HEMATOCRIT 25.9 % (35.0-45.0); HEMOGLOBIN 8.7 g/dl (12.0-16.0); LYMPHOCYTES # (AUTO) 0.7 X10'3 (1.1-4.8); LYMPHOCYTES % (AUTO) 6.7 % (21-51); MEAN CORPUSCULAR HEMOGLOBIN 29.4 PG (27.0-31.0); MEAN CORPUSCULAR HGB CONC 33.7 g/dL (33.0-36.5); MEAN CORPUSCULAR VOLUME 87.2 FL (78-98); MEAN PLATELET VOLUME 8.1 FL (7.4-10.4); MONOCYTES # (AUTO) 1.3 X10'3 (0-0.9); NEUTROPHILS # (AUTO) 8.5 X10'3 (1.8-7.7); NEUTROPHILS % (AUTO) 79.3 % (42-75); PLATELET COUNT 320 X10'3 (140-440); RED BLOOD COUNT 2.98 X10'6 (4.20-5.60); RED CELL DISTRIBUTION WIDTH 14.8 % (11.5-14.5); WHITE BLOOD COUNT 10.7 X10'3 (4.5-11.0)
[2018-09-18 06:09] LABS: ALANINE AMINOTRANSFERASE 8 U/L (12-78); ALBUMIN 1.7 G/DL (3.4-5.0); ALBUMIN/GLOBULIN RATIO 0.4 (1.1-1.5); ALKALINE PHOSPHATASE 73 IU/L (46-116); ANION GAP 7 (8-16); ASPARTATE AMINO TRANSFERASE 13 U/L (10-37); BILIRUBIN,TOTAL 0.2 MG/DL (0.1-1.0); BLOOD UREA NITROGEN 15 MG/DL (7-18); BUN/CREATININE RATIO 16.9 (6.6-38.0); CALCIUM 8.6 MG/DL (8.5-10.1); CHLORIDE 100 MMOL/L (99-107); CREATININE 0.89 MG/DL (0.40-0.90); GLUCOSE 85 MG/DL (70-104); MAGNESIUM 1.9 MG/DL (1.5-2.4); PHOSPHORUS 3.9 MG/DL (2.3-4.5); POTASSIUM 3.9 MMOL/L (3.5-5.1); SODIUM 133 MMOL/L (135-145); TOTAL CARBON DIOXIDE 25.7 MMOL/L (24-32); TOTAL PROTEIN 5.9 G/DL (6.4-8.2); eGFR 63 ML/MIN
--- NOTE | 2018-09-18 06:24 | NUR ---
Problems reprioritized. Patient report given, questions answered & plan of care reviewed with CHIO Garcia. Addendum: 09/18/18 at 0624 by Anabell De Leon RN Amended: Links added.
[2018-09-18 07:20] VITALS: BP 92/48
[2018-09-18] MEDS: lactobacillus rhamnosus 10,000 MMU CELLS/CAPSULE PO SCH ×2 (08:09→19:36)
[2018-09-18] MEDS: enoxaparin 40mg/0.4ml syringe SQ SCH (08:10)
[2018-09-18] MEDS: K and/or MAG REPLACEMENT MC SCH (08:15)
[2018-09-18] MEDS: lactose-reduced food (Ensure High Protein) 237ml bottle PO SCH ×3 (08:25→18:00)
[2018-09-18] MEDS: nystatin 15 GM powder TP SCH ×3 (08:25→21:00)
[2018-09-18] MEDS: silver sulfadiazine cream 400gm jar TP SCH (08:25)
[2018-09-18] MEDS: normal saline 1000ml 1,000 ML IV SCH ×2 (08:26→12:36)
[2018-09-18] MEDS: VANCOMYCIN 750MG IV in NS 250 ML IV SCH ×2 (12:36→23:27)
[2018-09-18] MEDS: levoFLOXACIN 500mg tablet PO SCH (12:36)
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
--- NOTE | 2018-09-18 18:45 | NUR ---
Problems reprioritized. Patient report given, questions answered & plan of care reviewed with CHIO Pearson.
[2018-09-18 20:00] VITALS: BP 94/55
[2018-09-18] MEDS: morphine 2 MG/ML inj. syringe IV PRN (23:27)
[2018-09-19] VITALS: BP 89/55
--- NOTE | 2018-09-19 06:43 | NUR ---
Problems reprioritized. Patient report given, questions answered & plan of care reviewed with CHIO Kennedy. Addendum: 09/19/18 at 0643 by Anabell De Leon RN Amended: Links added.
--- NOTE | 2018-09-19 06:54 | NUR ---
Patient in room [facility]. I have received report from Anabell BARROSO and had the opportunity to ask questions and assume patient care.
[2018-09-19 07:00] VITALS: BP 98/58
[2018-09-19] MEDS: enoxaparin 40mg/0.4ml syringe SQ SCH (07:50)
[2018-09-19] MEDS: lactobacillus rhamnosus 10,000 MMU CELLS/CAPSULE PO SCH ×2 (07:50→19:38)
[2018-09-19] MEDS: HYDROcodone/acetaminophen 10/325mg tab PO PRN ×3 (07:51→22:36)
[2018-09-19] MEDS: K and/or MAG REPLACEMENT MC SCH (08:00)
[2018-09-19] MEDS: morphine 2 MG/ML inj. syringe IV PRN ×2 (08:45→17:21)
[2018-09-19] MEDS: lactose-reduced food (Ensure High Protein) 237ml bottle PO SCH ×3 (08:55→18:16)
[2018-09-19] MEDS: silver sulfadiazine cream 400gm jar TP SCH (08:56)
[2018-09-19] MEDS: nystatin 15 GM powder TP SCH ×3 (08:56→21:00)
[2018-09-19 11:00] VITALS: BP 100/57
[2018-09-19] MEDS: levoFLOXACIN 500mg tablet PO SCH (11:28)
[2018-09-19] MEDS ORDERED: VANCOMYCIN LEVEL IV ONE (11:30)
[2018-09-19] MEDS: VANCOMYCIN 750MG IV in NS 250 ML IV SCH (12:20)
[2018-09-19 12:32] LABS: CLARITY,URINE SLIGHTLY CLOUDY (Clear); COLOR,URINE YELLOW (Yellow); GLUCOSE, URINE NEGATIVE (Neg); KETONES,URINE NEGATIVE (Neg); LEUKOCYTE ESTERASE ,URINE NEGATIVE (Neg); NITRITES, URINE NEGATIVE (Neg); OCCULT BLOOD,URINE NEGATIVE (Neg); PH,URINE 5.5 (4.8-8.0); PROTEIN,URINE NEGATIVE (Neg); UROBILINOGEN,URINE 0.2 E.U/dL (0.2-1.0)
[2018-09-19 12:36] LABS: UA COLLECTION TYPE VOIDED
[2018-09-19 12:37] LABS: SQUAMOUS EPITHELIAL CELL,UR MANY /LPF (FEW)
[2018-09-19 12:38] LABS: BACTERIA,URINE 1+ /HPF (Neg); RBC,URINE NONE SEEN /HPF (0-2); WBC,URINE 0-4 /HPF (0-4); YEAST FEW /HPF (NEGATIVE)
[2018-09-19 12:39] LABS: COARSE GRANULAR CAST 0-3 /LPF (NEGATIVE); HYALINE CASTS 0-3 /LPF (NEGATIVE)
[2018-09-19] MEDS: normal saline 1000ml 1,000 ML IV SCH (13:09)
--- NOTE | 2018-09-19 17:56 | NUR ---
patient was seen by DR sanchez. Wound observed and redressed. MRI ordered but unable to do as patient too large for tube. DR Sanchez notified.
[2018-09-19 18:00] VITALS: BP 90/54
--- NOTE | 2018-09-19 18:17 | NUR ---
Problems reprioritized. Patient report given, questions answered & plan of care reviewed with William BARROSO.
--- NOTE | 2018-09-19 18:30 | NUR ---
Patient in room [facility]. I have received report from Marcia BARROSO and had the opportunity to ask questions and assume patient care.
[2018-09-20] VITALS: BP 103/52
[2018-09-20] MEDS: VANCOMYCIN 750MG IV in NS 250 ML IV SCH ×2 (00:14→12:38)
[2018-09-20] MEDS: normal saline 1000ml 1,000 ML IV SCH ×2 (00:16→16:59)
[2018-09-20] MEDS: morphine 2 MG/ML inj. syringe IV PRN ×2 (00:26→14:56)
--- NOTE | 2018-09-20 06:35 | NUR ---
Problems reprioritized. Patient report given, questions answered & plan of care reviewed with ROLLY BARROSO.
[2018-09-20 07:00] VITALS: BP 103/56
[2018-09-20] MEDS: K and/or MAG REPLACEMENT MC SCH (08:00)
[2018-09-20 08:15] LABS: ALBUMIN 1.7 G/DL (3.4-5.0); ANION GAP 5 (8-16); BLOOD UREA NITROGEN 12 MG/DL (7-18); BUN/CREATININE RATIO 11.8 (6.6-38.0); CALCIUM 8.6 MG/DL (8.5-10.1); CHLORIDE 102 MMOL/L (99-107); CREATININE 1.02 MG/DL (0.40-0.90); GLUCOSE 97 MG/DL (70-104); POTASSIUM 3.9 MMOL/L (3.5-5.1); SODIUM 135 MMOL/L (135-145); eGFR 54 ML/MIN
[2018-09-20 08:17] LABS: BASOPHILS % (AUTO) 0.5 % (0-1); EOSINOPHILS # (AUTO) 0.1 X10'3 (0-0.9); EOSINOPHILS % (AUTO) 1.6 % (0-6); HEMATOCRIT 24.6 % (35.0-45.0); HEMOGLOBIN 7.9 g/dl (12.0-16.0); LYMPHOCYTES # (AUTO) 0.5 X10'3 (1.1-4.8); LYMPHOCYTES % (AUTO) 6.8 % (21-51); MEAN CORPUSCULAR HEMOGLOBIN 28.1 PG (27.0-31.0); MEAN PLATELET VOLUME 7.7 FL (7.4-10.4); MONOCYTES # (AUTO) 0.6 X10'3 (0-0.9); NEUTROPHILS # (AUTO) 6.7 X10'3 (1.8-7.7); NEUTROPHILS % (AUTO) 83.1 % (42-75); PLATELET COUNT 375 X10'3 (140-440); RED CELL DISTRIBUTION WIDTH 15.1 % (11.5-14.5)
[2018-09-20] MEDS: nystatin 15 GM powder TP SCH ×3 (08:39→21:00)
[2018-09-20] MEDS: lactose-reduced food (Ensure High Protein) 237ml bottle PO SCH ×3 (08:39→18:00)
[2018-09-20] MEDS: lactobacillus rhamnosus 10,000 MMU CELLS/CAPSULE PO SCH ×2 (08:39→19:51)
[2018-09-20] MEDS: silver sulfadiazine cream 400gm jar TP SCH (08:40)
[2018-09-20] MEDS: HYDROcodone/acetaminophen 10/325mg tab PO PRN ×2 (09:52→19:52)
[2018-09-20] MEDS: enoxaparin 40mg/0.4ml syringe SQ SCH (09:53)
--- NOTE | 2018-09-20 10:28 | NUR ---
Received phone call from patient this afternoon. Pt reports desire to decrease CHO intake and states she isn't eating much of her meals because of this. Noted that documented PO intake has been 75-100% throughout LOS with documented intake of 25% at dinner last night. Pt agreeable to 2 hard boiled eggs TID and double protein TID, food preferences d/w dietary. Pt states she will not be drinking the Ensure High Protein d/t it having too many carbs (19g), encouraged intake of ONS as well as protein for wound healing purposes. Attempted to discuss the importance of CHO for balanced meal intake, pt declined verbal education at this time. Pt endorses desire to lose weight d/t recent results of possible wt gain with new weight taken via bed scale, currently no updated wt in eMAR. RD informed pt that wt loss is not desired during hospital stay and pt needs adequate nutrition for strength and skin integrity. Encouraged pt to continue working with dietary server for food preferences to optimize PO intake. Will continue to follow. Recommendations: 1) Continue regular diet 2) ensure high protein TIDWM per MD 3) monitor for ONS changes if PO remains lower 4) Two HB eggs TID, double protein TID, crystal light TID, sugar free desserts 5) Wt per rx Addendum: 09/20/18 at [address] Amended: Links added. Addendum: 09/20/18 at [address] Incorrect charting about documented PO intake. Noted that recent PO intake has been documented as 50-75% with some 25%; pt documented to have consumed 100% of ONS this morning.
[2018-09-20] MEDS: levoFLOXACIN 500mg tablet PO SCH (11:40)
[2018-09-20 12:00] VITALS: BP 99/50
--- NOTE | 2018-09-20 12:05 | NUR ---
PETRA BARROSO FROM WOUND CARE CAME TO PLACE WOUND VAC ON PT. IMMEDIATELY PT BEGAN TO VERBALLY INSULT/ASSAULT PETRA FOR CALLING HER "MAAM" RATHER THAN BY HER FIRST NAME. AT THAT POINT PETRA DECLINED TO DO WOUND VAC. PT CONT TO YELL IN THE ROOM REPEATEDLY STATING THAT SHE "HATES BEING CALLED MAAM" AND SHE IS BEING TREATED HORRIBLE HERE. WILL NOTIFY DR LUNA THAT WOUND VAC WAS NOT PLACED.
--- NOTE | 2018-09-20 18:22 | NUR ---
Problems reprioritized. Patient report given, questions answered & plan of care reviewed with JOHN BARROSO.
--- NOTE | 2018-09-20 18:35 | NUR ---
Patient in room [facility]. I have received report from ROLLY BARROSO and had the opportunity to ask questions and assume patient care.
[2018-09-20] MEDS: linezolid 600mg tablet PO SCH (19:51)
[2018-09-20 20:00] VITALS: BP 108/51
[2018-09-21] MEDS: HYDROcodone/acetaminophen 10/325mg tab PO PRN ×5 (01:06→20:02)
--- NOTE | 2018-09-21 06:10 | NUR ---
Patient in room [facility]. I have received report from Jo-Ann BARROSO and had the opportunity to ask questions and assume patient care.
[2018-09-21 06:15] LABS: BASOPHILS % (AUTO) 0.4 % (0-1); EOSINOPHILS # (AUTO) 0.1 X10'3 (0-0.9); EOSINOPHILS % (AUTO) 1.2 % (0-6); HEMATOCRIT 25.2 % (35.0-45.0); HEMOGLOBIN 8.5 g/dl (12.0-16.0); LYMPHOCYTES # (AUTO) 0.8 X10'3 (1.1-4.8); LYMPHOCYTES % (AUTO) 7.2 % (21-51); MEAN CORPUSCULAR HGB CONC 33.5 g/dL (33.0-36.5); MEAN CORPUSCULAR VOLUME 86.7 FL (78-98); MEAN PLATELET VOLUME 7.6 FL (7.4-10.4); MONOCYTES # (AUTO) 0.8 X10'3 (0-0.9); MONOCYTES % (AUTO) 7.8 % (2-12); NEUTROPHILS # (AUTO) 8.8 X10'3 (1.8-7.7); NEUTROPHILS % (AUTO) 83.4 % (42-75); PLATELET COUNT 418 X10'3 (140-440); RED BLOOD COUNT 2.91 X10'6 (4.20-5.60); RED CELL DISTRIBUTION WIDTH 15.2 % (11.5-14.5); WHITE BLOOD COUNT 10.5 X10'3 (4.5-11.0)
--- NOTE | 2018-09-21 06:49 | NUR ---
Problems reprioritized. Patient report given, questions answered & plan of care reviewed with EMMY BARROSO/ROCAEL.
--- NOTE | 2018-09-21 06:51 | NUR ---
Patient in room [facility] 350. I have received report from Holly BARROSO and had the opportunity to ask questions and assume patient care.
[2018-09-21] MEDS: K and/or MAG REPLACEMENT MC SCH (07:30)
[2018-09-21] MEDS: multivitamins, therapeutics tablet PO SCH (07:32)
[2018-09-21] MEDS: lactobacillus rhamnosus 10,000 MMU CELLS/CAPSULE PO SCH ×2 (07:32→20:02)
[2018-09-21] MEDS: linezolid 600mg tablet PO SCH ×2 (07:33→20:02)
[2018-09-21] MEDS: enoxaparin 40mg/0.4ml syringe SQ SCH (07:33)
[2018-09-21] MEDS: nystatin 15 GM powder TP SCH ×3 (07:34→21:00)
[2018-09-21] MEDS: silver sulfadiazine cream 400gm jar TP SCH (07:34)
[2018-09-21] MEDS: lactose-reduced food (Ensure High Protein) 237ml bottle PO SCH ×3 (07:38→18:00)
[2018-09-21 07:42] VITALS: BP 102/70
[2018-09-21] MEDS: levoFLOXACIN 250mg tablet PO SCH (11:07)
[2018-09-21 12:41] VITALS: BP 102/68
--- NOTE | 2018-09-21 16:39 | NUR ---
Zyvox consult: Pt receiving Zyvox seen at bedside given written and verbal low tyramine nutrition therapy education. Pt with additional food preferences, requests ranch be sent at each meal with 2 HB eggs and diet lemon flandreau at lunch, d/w dietary. Pt with documented 100% intake on regular diet receiving double protein TID with 25-50% intake of Ensure High Protein meeting nutrient needs. LBM 4/5. Will continue to follow. Recommendations: 1) Continue regular diet 2) ensure high protein TIDWM per MD 3) monitor for ONS changes if PO remains lower 4) Two HB eggs with ranch TID, double protein TID, crystal light TID, sugar free desserts, diet lemon-flandreau soda at lunch 5) Wt per rx Addendum: 09/21/18 at [address] Amended: Links added.
--- NOTE | 2018-09-21 18:27 | NUR ---
Patient in room [facility] 350. I have received report from Silke Spence and had the opportunity to ask questions and assume patient care. Addendum: 09/21/18 at 1831 by Oliva Fernandez RN Amended: Links added.
--- NOTE | 2018-09-21 18:39 | NUR ---
Problems reprioritized. Patient report given, questions answered & plan of care reviewed with CJ BARROSO.
--- NOTE | 2018-09-21 19:28 | NUR ---
SITTINIG UP EDGE OF BED NO COMPLAINTS
--- NOTE | 2018-09-21 19:45 | NUR ---
pt medicated for apin and took hs meds no other complaints at this time. wound vac without changes at 125mmhg
[2018-09-21 20:00] VITALS: BP 101/56
--- NOTE | 2018-09-21 21:00 | NUR ---
pt sitting up edge of bed without complaints wound vac intact on leg and no leaks noted.
--- NOTE | 2018-09-21 23:00 | NUR ---
pt assisted back into bed transfered with slight difficulty pt uses towels to lift her legs.
[2018-09-22] VITALS: BP 98/60
[2018-09-22 00:23] VITALS: BP 142/49
--- NOTE | 2018-09-22 01:24 | NUR ---
resting eyes closed without s&s of distress at this time.
[2018-09-22] MEDS: HYDROcodone/acetaminophen 10/325mg tab PO PRN ×4 (01:51→19:40)
--- NOTE | 2018-09-22 02:00 | NUR ---
medicated for c/o pain with norco for this for leg pain.
--- NOTE | 2018-09-22 04:00 | NUR ---
RESTING EYES CLOSED NO CHANGES.
--- NOTE | 2018-09-22 05:11 | NUR ---
AWAKE AFTER LAB DRAW DID NOT SCREAM THIS AM.
[2018-09-22 05:28] LABS: BASOPHILS % (AUTO) 0.6 % (0-1); EOSINOPHILS # (AUTO) 0.1 X10'3 (0-0.9); EOSINOPHILS % (AUTO) 1.7 % (0-6); HEMATOCRIT 23.5 % (35.0-45.0); HEMOGLOBIN 7.6 g/dl (12.0-16.0); LYMPHOCYTES # (AUTO) 0.6 X10'3 (1.1-4.8); MEAN CORPUSCULAR HEMOGLOBIN 28.2 PG (27.0-31.0); MEAN CORPUSCULAR HGB CONC 32.4 g/dL (33.0-36.5); MEAN CORPUSCULAR VOLUME 87.1 FL (78-98); MEAN PLATELET VOLUME 7.5 FL (7.4-10.4); MONOCYTES # (AUTO) 0.6 X10'3 (0-0.9); MONOCYTES % (AUTO) 7.5 % (2-12); NEUTROPHILS # (AUTO) 6.6 X10'3 (1.8-7.7); NEUTROPHILS % (AUTO) 83.2 % (42-75); PLATELET COUNT 386 X10'3 (140-440); RED CELL DISTRIBUTION WIDTH 14.8 % (11.5-14.5); WHITE BLOOD COUNT 7.9 X10'3 (4.5-11.0)
[2018-09-22 05:39] LABS: ALBUMIN 1.8 G/DL (3.4-5.0); ANION GAP 8 (8-16); BLOOD UREA NITROGEN 12 MG/DL (7-18); BUN/CREATININE RATIO 13.2 (6.6-38.0); CALCIUM 8.4 MG/DL (8.5-10.1); CHLORIDE 102 MMOL/L (99-107); CREATININE 0.91 MG/DL (0.40-0.90); GLUCOSE 80 MG/DL (70-104); POTASSIUM 3.7 MMOL/L (3.5-5.1); SODIUM 135 MMOL/L (135-145); TOTAL CARBON DIOXIDE 24.6 MMOL/L (24-32); eGFR 62 ML/MIN
--- NOTE | 2018-09-22 06:32 | NUR ---
Problems reprioritized. Patient report given, questions answered & plan of care reviewed with CLARI BARROSO. Addendum: 09/22/18 at 0633 by Oliva Fernandez RN Amended: Links added.
--- NOTE | 2018-09-22 06:40 | NUR ---
Patient in room [facility] 350. I have received report from CHIO Baptiste and had the opportunity to ask questions and assume patient care.
[2018-09-22 07:00] VITALS: BP 101/60
[2018-09-22] MEDS: K and/or MAG REPLACEMENT MC SCH (07:09)
[2018-09-22] MEDS: nystatin 15 GM powder TP SCH (08:00)
[2018-09-22] MEDS: lactose-reduced food (Ensure High Protein) 237ml bottle PO SCH ×3 (08:00→18:00)
[2018-09-22] MEDS: enoxaparin 40mg/0.4ml syringe SQ SCH (08:23)
[2018-09-22] MEDS: multivitamins, therapeutics tablet PO SCH (08:23)
[2018-09-22] MEDS: lactobacillus rhamnosus 10,000 MMU CELLS/CAPSULE PO SCH ×2 (08:23→19:40)
[2018-09-22] MEDS: linezolid 600mg tablet PO SCH ×2 (08:23→19:40)
[2018-09-22] MEDS: silver sulfadiazine cream 400gm jar TP SCH (08:24)
[2018-09-22 12:00] VITALS: BP 104/57
[2018-09-22] MEDS: levoFLOXACIN 250mg tablet PO SCH (12:45)
--- NOTE | 2018-09-22 18:30 | NUR ---
Problems reprioritized. Patient report given, questions answered & plan of care reviewed with CHIO Baptiste.
--- NOTE | 2018-09-22 18:43 | NUR ---
Patient in room [facility] 350. I have received report from CLARI BARROSO and had the opportunity to ask questions and assume patient care. Addendum: 09/22/18 at 1844 by Oliva Fernandez RN Amended: Links added.
--- NOTE | 2018-09-22 19:45 | NUR ---
pt medicated for pain and took hs meds she requested it now.no s&S of distress and set up room way she wanted it after assessing her.
[2018-09-22 20:00] VITALS: BP 98/60
--- NOTE | 2018-09-22 21:00 | NUR ---
no complaints at this time watching a movie
--- NOTE | 2018-09-22 23:00 | NUR ---
pt resting without changes.
[2018-09-23] VITALS: BP 97/52
--- NOTE | 2018-09-23 00:30 | NUR ---
medicated for c/ot pain. pt watching a movie.
[2018-09-23] MEDS: HYDROcodone/acetaminophen 10/325mg tab PO PRN ×4 (00:34→15:35)
--- NOTE | 2018-09-23 02:30 | NUR ---
pt resting without changes.
--- NOTE | 2018-09-23 05:00 | NUR ---
[employer] OF URINE ON THE FLOOR GOING TO THE [facility]. towels there and housekeeping called.
--- NOTE | 2018-09-23 05:45 | NUR ---
MEDICATED FOR PAIN WITH NORCO.
[2018-09-23 06:00] VITALS: BP 101/60
--- NOTE | 2018-09-23 06:10 | NUR ---
Patient in room [facility] 350. I have received report from CHIO Baptiste and had the opportunity to ask questions and assume patient care.
--- NOTE | 2018-09-23 06:16 | NUR ---
Problems reprioritized. Patient report given, questions answered & plan of care reviewed with CLARI BARROSO. Addendum: 09/23/18 at 0617 by Oliva Fernandez RN Amended: Links added.
[2018-09-23] MEDS: lactose-reduced food (Ensure High Protein) 237ml bottle PO SCH ×3 (06:49→18:00)
[2018-09-23] MEDS: K and/or MAG REPLACEMENT MC SCH (06:49)
[2018-09-23] MEDS: enoxaparin 40mg/0.4ml syringe SQ SCH (10:11)
[2018-09-23] MEDS: lactobacillus rhamnosus 10,000 MMU CELLS/CAPSULE PO SCH (10:11)
[2018-09-23] MEDS: linezolid 600mg tablet PO SCH (10:11)
[2018-09-23] MEDS: levoFLOXACIN 250mg tablet PO SCH (10:11)
[2018-09-23] MEDS: multivitamins, therapeutics tablet PO SCH (10:12)
[2018-09-23] MEDS: silver sulfadiazine cream 400gm jar TP SCH (10:13)
[2018-09-23 10:52] LABS: BASOPHILS % (AUTO) 0.6 % (0-1); EOSINOPHILS # (AUTO) 0.2 X10'3 (0-0.9); HEMATOCRIT 25.4 % (35.0-45.0); HEMOGLOBIN 8.3 g/dl (12.0-16.0); LYMPHOCYTES # (AUTO) 0.7 X10'3 (1.1-4.8); LYMPHOCYTES % (AUTO) 8.6 % (21-51); MEAN CORPUSCULAR HEMOGLOBIN 28.5 PG (27.0-31.0); MEAN CORPUSCULAR HGB CONC 32.7 g/dL (33.0-36.5); MEAN PLATELET VOLUME 7.6 FL (7.4-10.4); MONOCYTES # (AUTO) 0.6 X10'3 (0-0.9); MONOCYTES % (AUTO) 6.8 % (2-12); PLATELET COUNT 459 X10'3 (140-440); RED BLOOD COUNT 2.92 X10'6 (4.20-5.60); RED CELL DISTRIBUTION WIDTH 14.9 % (11.5-14.5); WHITE BLOOD COUNT 8.5 X10'3 (4.5-11.0)
[2018-09-23] MEDS ORDERED: HYDROcodone/acetaminophen 10/325mg tab PO ONE (10:55)
[2018-09-23 11:00] VITALS: BP 104/71
--- NOTE | 2018-09-23 12:06 | NUR ---
WOUND VAC EDUCATION PROVIDED BY WOUND CARE 1. Patient instructed to call the Wound Center or their Home Health Agency immediately if: * They notice a change in the color or amount of the fluid in the canister. * Their wound looks more red than usual or has a foul smell. * The skin around their wound looks reddened or irritated. * The dressing feels loose or appears to be loose. * They experience any increase or changes in their pain. * The alarm will not turn off. 2. Patient instructed that they should not be disconnected from suction for more than 2 hours at a time. * If they are not able to get the suction back on, they need to remove the dressing and take all of the foam out of the wound. * Then moisten sterile gauze with normal saline and place on/in the wound. * Change the dressing once a day until arrangements have been made to replace the wound vac dressing. 3. Patient instructed to turn the wound vac machine OFF and call 911 or go to the ED immediately if their canister fills rapidly with blood. 4. If any of these occur while in the hospital tell a nurse immediately. Addendum: 09/23/18 at 1206 by Loida Shannon RN Amended: Links added.
[2018-09-23] MEDS ORDERED: LINE600T32 PO (17:15)
[2018-09-23] MEDS ORDERED: LEVO250T58 PO (17:15)
[2018-09-23] MEDS ORDERED: HYDR-3972 PO (17:15)
--- NOTE | 2018-09-23 18:25 | NUR ---
DC inst provided including home [place] use. No IV. All belongings sent w/pt. WC to [facility]. Addendum: 09/23/18 at 1910 by Shreya Singletary RN [facility] cab to [facility]. Pt refused cab to home, insisting on taking cab to [facility] then after she is done @ [facility] she will then get her own cab ride from [facility] to her home.
== END 2018-09-23 18:30 | disposition home or self-care (01) | DRG 853 ==
LOC: ER 14:58 → ED HOLD 22:12 → SUR 3N 09-08 02:13
PROVIDERS: ADMIT Hospitalist; ATTEND Internal Medicine
PROC: 0JBN0ZZ Excision of Right Lower Leg Subcutaneous Tissue and Fascia, Open Approach (ICD-10-PCS; principal; 2018-09-10 15:53)
DX: A41.9 Sepsis, unspecified organism (principal); E43 Unspecified severe protein-calorie malnutrition; L03.115 Cellulitis of right lower limb; E87.1 Hypo-osmolality and hyponatremia; L03.116 Cellulitis of left lower limb; L97.119 Non-pressure chronic ulcer of right thigh with unspecified severity; D64.9 Anemia, unspecified; I87.8 Other specified disorders of veins; I89.0 Lymphedema, not elsewhere classified; J44.9 Chronic obstructive pulmonary disease, unspecified; K52.9 Noninfective gastroenteritis and colitis, unspecified; L98.429 Non-pressure chronic ulcer of back with unspecified severity; F32.9 Major depressive disorder, single episode, unspecified; E11.9 Type 2 diabetes mellitus without complications; E66.01 Morbid (severe) obesity due to excess calories; Z68.33 Body mass index [BMI] 33.0-33.9, adult; Z91.19 Patient's noncompliance with other medical treatment and regimen; Z79.899 Other long term (current) drug therapy; Z56.0 Unemployment, unspecified
CPT/HCPCS: 36415; 71045; 80048; 80053; 80202; 81001; 82948; 83605; 83735; 84100; 84145; 85025; 87040; 87070; 87077; 87088; 87186; 89055; 93005; 93971; 97116; 97162; 97164; 97530; 99285; A6196; A6223; A6449; A7000; G0378; J0696; J1650; J2250; J2270; J2704; J3010; J3370; J7030; J7042; J7120

== ENCOUNTER 2018-10-02 10:01 | Outpatient (CLI) | payer MEDICARE, MEDICAID ==
[~2018-10-02 10:01] MED LIST: HYDR-3972 PO; LEVO250T58 PO; LINE600T32 PO; VALE500C PO
--- NOTE | 2018-10-02 15:16 | NUR ---
Patient arrived safely into [facility] via wheelchair. Patient admitted to outpatient wound care clinic for first time visit with physician. Dressings and wound vac removed. Wounds cleansed and patient assessed. Medications and medical history reviewed. Dr. Quezada at bedside accompanied by RN. Wounds assessed and no debridement was done. Plan of care discussed with patient. Dressings placed per MD orders. Patient instructed on the signs and symptoms of infection and to call the Wound Center if any occur or to go to the ED if we are closed: Increased pain in wound Increase in drainage from the wound Redness in the skin surrounding the wound Bleeding from the wound Temperature of 101 or greater Pt instructed that they should not be disconnected from suction for more than 2 hours at a time. If they are not able to get the suction back on they need to remove the dressing and take all of the foam out of the wound, place hydrogel gauze on/in the wound, and change the dressing daily until someone can replace the dressing. Pt instructed to call the Wound Center or their Home Health Agency immediately if they notice a change in the color or amount of the fluid in the canister, their wound looks more red than usual or has a foul smell, the skin around their wound looks reddened or irritated, the dressing feels or appears loose, they experience pain or the alarm will not turn off. Pt instructed to call 911 or go to the ED if their canister fills rapidly with blood. Patient instructed that the weight of their body puts a large amount of pressure on their wounds. This pressure keeps the new tissue from growing and inhibits new blood vessels from forming. Explained that, if they continue to bear weight on a body part that has a wound, the time it takes to heal the wound increases, the wound may get worse or the wound may not heal at all. Patient verbalized understanding of all discharge instructions and plan of care and ambulated independently out to [facility] in stable condition with no sign or symptom of distress at time of discharge. Addendum: 10/02/18 at 1524 by Frannie Fuentes RN Amended: Links added.
== END 2018-10-02 13:05 | disposition home or self-care (01) ==
LOC: WOUND CARE 10:01
PROVIDERS: ATTEND Surgery
DX: S81.801A Unspecified open wound, right lower leg, initial encounter (principal); I83.218 Varicose veins of right lower extremity with both ulcer of other part of lower extremity and inflammation; L97.812 Non-pressure chronic ulcer of other part of right lower leg with fat layer exposed; J44.9 Chronic obstructive pulmonary disease, unspecified; I89.0 Lymphedema, not elsewhere classified; E66.01 Morbid (severe) obesity due to excess calories; E43 Unspecified severe protein-calorie malnutrition; F32.9 Major depressive disorder, single episode, unspecified; Z68.33 Body mass index [BMI] 33.0-33.9, adult; Z79.899 Other long term (current) drug therapy; X58.XXXA Exposure to other specified factors, initial encounter; Y93.89 Activity, other specified; Y92.89 Other specified places as the place of occurrence of the external cause; Y99.8 Other external cause status
CPT/HCPCS: 97605; A6223; A6021; A6212; A6446

== ENCOUNTER 2018-10-10 11:09 | Emergency (ER) | payer MEDICARE, MEDICAID ==
[~2018-10-10] VITALS: Ht 167.6 cm; Wt 118.2 kg
[2018-10-10 12:19] LABS: BASOPHILS % (AUTO) 0.5 % (0-1); EOSINOPHILS # (AUTO) 0.1 X10'3 (0-0.9); EOSINOPHILS % (AUTO) 1.9 % (0-6); HEMATOCRIT 28.6 % (35.0-45.0); HEMOGLOBIN 9.4 g/dl (12.0-16.0); LYMPHOCYTES # (AUTO) 1.2 X10'3 (1.1-4.8); LYMPHOCYTES % (AUTO) 23.5 % (21-51); MEAN CORPUSCULAR HEMOGLOBIN 28.8 PG (27.0-31.0); MEAN CORPUSCULAR VOLUME 87.4 FL (78-98); MEAN PLATELET VOLUME 7.1 FL (7.4-10.4); MONOCYTES # (AUTO) 0.8 X10'3 (0-0.9); MONOCYTES % (AUTO) 15.2 % (2-12); NEUTROPHILS % (AUTO) 58.9 % (42-75); PLATELET COUNT 322 X10'3 (140-440); RED BLOOD COUNT 3.28 X10'6 (4.20-5.60); RED CELL DISTRIBUTION WIDTH 18.3 % (11.5-14.5); WHITE BLOOD COUNT 5.1 X10'3 (4.5-11.0)
[2018-10-10 12:30] LABS: ALANINE AMINOTRANSFERASE 14 U/L (12-78); ALBUMIN 2.5 G/DL (3.4-5.0); ALBUMIN/GLOBULIN RATIO 0.7 (1.1-1.5); ALKALINE PHOSPHATASE 116 IU/L (46-116); ANION GAP 10 (8-16); ASPARTATE AMINO TRANSFERASE 16 U/L (10-37); BILIRUBIN,TOTAL 0.5 MG/DL (0.1-1.0); BLOOD UREA NITROGEN 14 MG/DL (7-18); BUN/CREATININE RATIO 13.5 (6.6-38.0); CALCIUM 8.4 MG/DL (8.5-10.1); CHLORIDE 102 MMOL/L (99-107); CREATININE 1.04 MG/DL (0.40-0.90); GLUCOSE 79 MG/DL (70-104); MAGNESIUM 1.9 MG/DL (1.5-2.4); POTASSIUM 3.9 MMOL/L (3.5-5.1); SODIUM 138 MMOL/L (135-145); TOTAL CARBON DIOXIDE 26.1 MMOL/L (24-32); TOTAL PROTEIN 6.2 G/DL (6.4-8.2); eGFR 53 ML/MIN
[2018-10-10] MEDS ORDERED: gentamicin 0.1% topical ointment 15gm TP STA (12:39)
[2018-10-10 12:54] LABS: ANISOCYTOSIS 2+; PLATELET ESTIMATE NORMAL
--- NOTE | 2018-10-10 12:59 | NUR ---
CALLED [facility] AND SHE WILL FILE AN [facility] REPORT DUE TO PT LIVING CONDITIONS AND ALSO CALL [facility] TO CHECK ON STATUS OF AVAILABILITY FOR TRANSPORT TO APPOINTMENTS. [facility] WILL CALL BACK OR COME TO ED IN APPROX 30 MIN.
--- NOTE | 2018-10-10 13:21 | NUR ---
WOUND CARE NURSE AT BEDSIDE PLACING DRESSING, PT HAS WOUND CARE APPOINTMENT ON SUNDAY AT 1100, [facility] PAGED TO DISCUSS PT PLAN FOR DISCHARGE AND OUTPATIENT FOLLOW UP.
[2018-10-10 13:36] VITALS: BP 97/53
--- NOTE | 2018-10-10 14:06 | NUR ---
PT SITTING IN CHAIR AT BEDSIDE, GAVE PT A SANDWICH, CHIPS, JUICE, APPLESAUCE AND CHEESESTICK PT REQUESTED FOOD, PT ORDERS FOR EVALUATION FOR WHEELCHAIR, JARRETT MUSAK CLERK PAGED PT.
--- NOTE | 2018-10-10 14:36 | NUR ---
PT AT BEDSIDE FOR EVALUATION NOW.
--- NOTE | 2018-10-10 15:30 | NUR ---
JACIEL WITH [employer] WORKING ON GETTING WHEELCHAIR AND THEN WILL COORDINATE PT TRANSPORTATION HOME.
[2018-10-10] MEDS ORDERED: HYDROcodone/acetaminophen 5mg/325mg tablet PO ONE (17:00)
--- NOTE | 2018-10-10 17:22 | NUR ---
PT MEDICATED FOR PAIN, PT TRANSPORT ETA 30-40 MIN, PT TRANSPORT FOR SUNDAY 1020 WOUND CARE DOCTOR ARRANGED, PT INFORMED OF CM WORKING ON GETTING WHEELCHAIR TOMORROW AND WILL CALL THE PATIENT, WILL CALL PT SON TO LET HIM KNOW SHE IS COMING HOME
--- NOTE | 2018-10-10 18:28 | NUR ---
CALLED TRANSPORTATION [phone] STATES [facility] WILL ARRIVE IN APPROX 6 MIN AND TO HAVE PT WAIT IN LOBBY FOR TRANSPORT HOME, PT BROUGHT TO LOBBY IN WHEELCHAIR AND WAIT FOR TRANSPORT
== END 2018-10-10 18:41 | disposition home or self-care (01) ==
LOC: ER 11:10
DX: S81.801D Unspecified open wound, right lower leg, subsequent encounter (principal); Z56.0 Unemployment, unspecified; X58.XXXD Exposure to other specified factors, subsequent encounter
CPT/HCPCS: 36415; 71045; 80053; 83735; 84484; 85025; 93005; 97116; 97162; 99284

== ENCOUNTER 2018-10-14 10:40 | Day surgery (SDC) | payer MEDICARE, MEDICAID ==
[2018-10-14] MEDS ORDERED: LIDOcaine/PRILOcaine 5gm cream TP ONE (12:09)
--- NOTE | 2018-10-14 14:00 | NUR ---
Patient arrived via wheelchair pushed by RN from [facility] and was admitted to outpatient wound care for physician visit with Bj Quezada MD. Patient is assisted to [facility] by RN and is extremely painful to any and all touch and screams loudly with any attempt to wash wound and declines cleansing of wounds. Dressing removed and Emla cream applied per order. Patient assessed for changes in conditions, medications and medical history. 1225 - Dr. Quezada at bedside accompanied by RN. Wound assessed, time out performed by MD/RN. Wound debrided as detailed in the physician progress/procedure note. Plan of care discussed with patient. Dressings placed per MD orders. Pt instructed that they should not be disconnected from suction for more than 2 hours at a time. If they are not able to get the suction back on they need to remove the dressing and take all of the foam out of the wound, place hydrogel gauze on/in the wound, and change the dressing daily until someone can replace the dressing. Pt instructed to call the Wound Center or their Home Health Agency immediately if they notice a change in the color or amount of the fluid in the canister, their wound looks more red than usual or has a foul smell, the skin around their wound looks reddened or irritated, the dressing feels or appears loose, they experience pain or the alarm will not turn off. Pt instructed to call 911 or go to the ED if their canister fills rapidly with blood. Patient instructed on the signs and symptoms of infection and to call the Wound Center if any occur or to go to the ED if we are closed: Increased pain in wound Increase in drainage from the wound Redness in the skin surrounding the wound Bleeding from the wound Temperature of 101 or greater Patient instructed that the weight of their body puts a large amount of pressure on their wounds. This pressure keeps the new tissue from growing and inhibits new blood vessels from forming. Explained that, if they continue to bear weight on a body part that has a wound, the time it takes to heal the wound increases, the wound may get worse or the wound may not heal at all. Patient verbalized understanding of all discharge instructions and plan of care and exited via wheelchair pushed by staff member out to [facility] in stable condition with no sign or symptom of distress at time of discharge. Pain medication prescription given to patient and prescription for Lasix called in to patient's pharmacy.
[2018-10-14] MEDS ORDERED: FURO-150 PO (14:57)
== END 2018-10-14 14:09 | disposition home or self-care (01) ==
LOC: WOUND CARE 10:40
PROVIDERS: ATTEND Surgery
DX: S81.801D Unspecified open wound, right lower leg, subsequent encounter (principal); I83.218 Varicose veins of right lower extremity with both ulcer of other part of lower extremity and inflammation; L97.812 Non-pressure chronic ulcer of other part of right lower leg with fat layer exposed; J44.9 Chronic obstructive pulmonary disease, unspecified; I89.0 Lymphedema, not elsewhere classified; E66.01 Morbid (severe) obesity due to excess calories; L04.3 Acute lymphadenitis of lower limb; E43 Unspecified severe protein-calorie malnutrition; F32.9 Major depressive disorder, single episode, unspecified; Z68.33 Body mass index [BMI] 33.0-33.9, adult; Z79.899 Other long term (current) drug therapy; X58.XXXD Exposure to other specified factors, subsequent encounter
CPT/HCPCS: 97597; 97598; A6223; A6250; A6446

== ENCOUNTER 2018-10-20 15:00 | Inpatient (IN) | payer MEDICARE, MEDICAID | END 2018-10-31 16:04 | disposition home or self-care (01) | LOC: ER 15:00 → SUR 3N 10-21 07:14 | DX: A41.9 Sepsis, unspecified organism (principal); N17.0 Acute kidney failure with tubular necrosis; L03.115 Cellulitis of right lower limb; L03.116 Cellulitis of left lower limb; E87.1 Hypo-osmolality and hyponatremia; N39.0 Urinary tract infection, site not specified; E86.0 Dehydration; D63.8 Anemia in other chronic diseases classified elsewhere; I48.2 Chronic atrial fibrillation; I87.8 Other specified disorders of veins ==

== ENCOUNTER 2018-11-08 14:20 | Emergency (ER) | payer MEDICARE, MEDICAID ==
[~2018-11-08] VITALS: Ht 162.6 cm; Wt 118.2 kg
[~2018-11-08 14:20] MED LIST changes: +APIX5TAB3 PO; -LEVO250T58 PO; +LEVO750T46 PO; -LINE600T32 PO
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
[2018-11-08 15:36] LABS: BASOPHILS % (AUTO) 0.6 % (0-1); EOSINOPHILS # (AUTO) 0.1 X10'3 (0-0.9); EOSINOPHILS % (AUTO) 1.1 % (0-6); HEMATOCRIT 30.9 % (35.0-45.0); HEMOGLOBIN 10.1 g/dl (12.0-16.0); LYMPHOCYTES # (AUTO) 0.9 X10'3 (1.1-4.8); LYMPHOCYTES % (AUTO) 13.4 % (21-51); MEAN CORPUSCULAR HEMOGLOBIN 29.3 PG (27.0-31.0); MEAN CORPUSCULAR HGB CONC 32.8 g/dL (33.0-36.5); MEAN CORPUSCULAR VOLUME 89.3 FL (78-98); MEAN PLATELET VOLUME 7.4 FL (7.4-10.4); MONOCYTES # (AUTO) 0.8 X10'3 (0-0.9); MONOCYTES % (AUTO) 11.6 % (2-12); NEUTROPHILS # (AUTO) 4.8 X10'3 (1.8-7.7); NEUTROPHILS % (AUTO) 73.3 % (42-75); PLATELET COUNT 447 X10'3 (140-440); RED BLOOD COUNT 3.46 X10'6 (4.20-5.60); RED CELL DISTRIBUTION WIDTH 19.8 % (11.5-14.5); WHITE BLOOD COUNT 6.5 X10'3 (4.5-11.0)
[2018-11-08 15:39] LABS: ALANINE AMINOTRANSFERASE 10 U/L (12-78); ALBUMIN 2.5 G/DL (3.4-5.0); ALBUMIN/GLOBULIN RATIO 0.6 (1.1-1.5); ALKALINE PHOSPHATASE 95 IU/L (46-116); ANION GAP 4 (8-16); ASPARTATE AMINO TRANSFERASE 10 U/L (10-37); BILIRUBIN,TOTAL 0.4 MG/DL (0.1-1.0); BLOOD UREA NITROGEN 10 MG/DL (7-18); BUN/CREATININE RATIO 11.5 (6.6-38.0); CALCIUM 8.5 MG/DL (8.5-10.1); CHLORIDE 103 MMOL/L (99-107); CREATININE 0.87 MG/DL (0.40-0.90); GLUCOSE 75 MG/DL (70-104); POTASSIUM 3.8 MMOL/L (3.5-5.1); SODIUM 136 MMOL/L (135-145); TOTAL CARBON DIOXIDE 28.8 MMOL/L (24-32); TOTAL PROTEIN 6.9 G/DL (6.4-8.2); eGFR 65 ML/MIN
[2018-11-08 15:42] LABS: PARTIAL THROMBOPLASTIN TIME 29 SECONDS (22-32)
[2018-11-08 15:58] VITALS: BP 108/61
[2018-11-08 16:16] LABS: ANISOCYTOSIS 2+; HYPOCHROMASIA 1+; PLATELET ESTIMATE INCREASED; POLYCHROMASIA FEW
--- NOTE | 2018-11-08 16:26 | NUR ---
SPOKE WITH SALLY REGARDING PATIENT WHO WOULD NOW LIKE TO GO TO REHAB. SHE WAS RECENTLY DISCHARGED FROM HOSPITAL INPATIENT STAY. WILL REFER TO ALL SNFS. KAREN OLSON IS AWARE, AND WILL FOLLOW UP TOMORROW.
[2018-11-08] MEDS ORDERED: loperamide 2mg capsule PO ONE (16:40)
[2018-11-08] MEDS ORDERED: HYDROcodone/acetaminophen 5mg/325mg tablet PO ONE (16:40)
[2018-11-08] MEDS ORDERED: HYDR-3973 PO (17:36)
[2018-11-08] MEDS ORDERED: CLIN150C2 PO (17:55)
[2018-11-08] MEDS ORDERED: COMMODE (17:58)
[2018-11-08] MEDS ORDERED: LOPE2TAB25 PO (18:17)
--- NOTE | 2018-11-08 18:29 | NUR ---
PLACED GAUZE WITH PETROLEUM AND FOAM BANDAGE OVER WOUND ON RIGHT SOLE OF FOOT.
[2018-11-08] MEDS ORDERED: HYDR-3965 PO (18:41)
--- NOTE | 2018-11-08 18:42 | NUR ---
CALLED [facility] [employer] FOR A [facility] BUT THEY DID NOT HAVE A [employer] REGISTRAR WITH A VAN & WHEELCHAIR TO ACCOMODATE HER. LEFT GLENN A MESSAGE. WE ARE NOW CALLING THE SON LENY TO SEE IF HE CAN HELP.
--- NOTE | 2018-11-08 19:16 | NUR ---
[facility] ETA 193
== END 2018-11-08 19:46 | disposition home or self-care (01) ==
LOC: ER 14:21
DX: L03.115 Cellulitis of right lower limb (principal); G89.29 Other chronic pain; Z79.899 Other long term (current) drug therapy; Z56.0 Unemployment, unspecified; Z60.2 Problems related to living alone
CPT/HCPCS: 36415; 71045; 80053; 83605; 84145; 85025; 85610; 85730; 87040; 99284

== ENCOUNTER 2022-05-31 14:08 | Emergency (ER) | payer MEDICARE, MEDICAID ==
[~2022-05-31] VITALS: Ht 162.6 cm; Wt 118.2 kg
[~2022-05-31 14:08] MED LIST changes: +AMOX-101 PO; -APIX5TAB3 PO; +ASPI-10 PO; +FAMO-128 PO; -HYDR-3972 PO; -LEVO750T46 PO; -VALE500C PO
[2022-05-31 16:56] LABS: BASOPHILS % (AUTO) 0.6 % (0-1); EOSINOPHILS # (AUTO) 0.1 X10'3 (0-0.9); EOSINOPHILS % (AUTO) 1.6 % (0-6); HEMATOCRIT 38.5 % (35.0-45.0); HEMOGLOBIN 12.5 g/dl (12.0-16.0); LYMPHOCYTES # (AUTO) 0.7 X10'3 (1.1-4.8); LYMPHOCYTES % (AUTO) 10.2 % (21-51); MEAN CORPUSCULAR HEMOGLOBIN 25.9 PG (27.0-31.0); MEAN CORPUSCULAR HGB CONC 32.3 g/dL (33.0-36.5); MEAN PLATELET VOLUME 8.2 FL (7.4-10.4); MONOCYTES # (AUTO) 0.7 X10'3 (0-0.9); MONOCYTES % (AUTO) 8.9 % (2-12); NEUTROPHILS # (AUTO) 5.8 X10'3 (1.8-7.7); NEUTROPHILS % (AUTO) 78.7 % (42-75); PLATELET COUNT 347 X10'3 (140-440); RED BLOOD COUNT 4.81 X10'6 (4.20-5.60); RED CELL DISTRIBUTION WIDTH 16.5 % (11.5-14.5); WHITE BLOOD COUNT 7.3 X10'3 (4.5-11.0)
[2022-05-31 17:20] LABS: ALANINE AMINOTRANSFERASE 16 U/L (12-78); ALBUMIN 3.3 G/DL (3.4-5.0); ALBUMIN/GLOBULIN RATIO 0.7 (1.1-1.5); ALKALINE PHOSPHATASE 81 IU/L (46-116); ANION GAP 13 (8-16); ASPARTATE AMINO TRANSFERASE 20 U/L (10-37); BILIRUBIN,TOTAL 0.3 MG/DL (0.1-1.0); BLOOD UREA NITROGEN 33 MG/DL (7-18); BUN/CREATININE RATIO 22.1 (6.6-38.0); CALCIUM 9.1 MG/DL (8.5-10.1); CHLORIDE 102 MMOL/L (99-107); CREATININE 1.49 MG/DL (0.40-0.90); GLUCOSE 117 MG/DL (70-104); POTASSIUM 4.7 MMOL/L (3.5-5.1); SODIUM 134 MMOL/L (135-145); TOTAL CARBON DIOXIDE 19.4 MMOL/L (24-32); TOTAL PROTEIN 8.1 G/DL (6.4-8.2); eGFR 34 ML/MIN
--- NOTE | 2022-05-31 22:00 | NUR ---
I agree with Katja Ibrahim, Ns assessment.
[2022-05-31 23:02] VITALS: BP 111/65
[2022-05-31] MEDS ORDERED: CEPH-585 PO (23:40)
[2022-05-31] MEDS ORDERED: cephalexin 250mg capsule PO ONE (23:40)
[2022-05-31] MEDS ORDERED: HYDR-3965 PO (23:40)
[2022-05-31] MEDS ORDERED: HYDROcodone/acetaminophen 5mg/325mg tablet PO ONE (23:40)
[2022-05-31 23:44] LABS: CLARITY,URINE CLOUDY (Clear); COLOR,URINE YELLOW (Yellow); GLUCOSE, URINE NEGATIVE (Neg); KETONES,URINE NEGATIVE (Neg); LEUKOCYTE ESTERASE ,URINE MODERATE (Neg); NITRITES, URINE POSITIVE (Neg); OCCULT BLOOD,URINE MODERATE (Neg); PROTEIN,URINE 100 mg/dl (Neg); UROBILINOGEN,URINE 0.2 E.U/dL (0.2-1.0)
[2022-05-31 23:48] LABS: UA COLLECTION TYPE CLN CATCH MIDSTREAM
[2022-05-31 23:53] LABS: BACTERIA,URINE 2+ /HPF (Neg); MUCUS STRANDS FEW /LPF (Neg); SQUAMOUS EPITHELIAL CELL,UR FEW /LPF (FEW); WBC,URINE TNTC /HPF (0-4)
== END 2022-06-01 01:13 | disposition home or self-care (01) ==
LOC: ER 14:08
DX: S81.802A Unspecified open wound, left lower leg, initial encounter (principal); S81.801A Unspecified open wound, right lower leg, initial encounter; G89.29 Other chronic pain; Z86.19 Personal history of other infectious and parasitic diseases; Z87.19 Personal history of other diseases of the digestive system; Z87.891 Personal history of nicotine dependence; Z79.2 Long term (current) use of antibiotics; Z79.82 Long term (current) use of aspirin; Z79.899 Other long term (current) drug therapy; Z56.0 Unemployment, unspecified; X58.XXXA Exposure to other specified factors, initial encounter; Y93.89 Activity, other specified; Y92.89 Other specified places as the place of occurrence of the external cause; Y99.8 Other external cause status
CPT/HCPCS: 36415; 71045; 80053; 81001; 83605; 84145; 85025; 87040; 99284; A6223; A6446; A6449